=== PATIENT | female | born 1990 | race Caucasian/White ===

== ENCOUNTER 2017-10-16 14:32 | Outpatient (CLI) | payer BC, SELFPAY ==
[2017-10-16 14:33] VITALS: BP 136/99; PULSE 120; RESP 16; TEMP 37.2; O2SAT 94; BMI 25.2
[2017-10-16] MEDS: Ondansetron 4 MG/2 ML Vial IV (15:04)
[2017-10-16] MEDS: 0.9% Normal Saline 1,000 ML 1000 ML IV (15:04)
[2017-10-16 15:20] LABS: BUN 6 mg/dL (7-18); Creatinine, Serum 0.59 mg/dL (0.55-1.02); Estimated Creatinine Clearance 144.48 ml/min; Glucose 99 mg/dL (74-106)
--- NOTE | 2017-10-16 15:20 | RAD_ITS ---
STUDY: X-RAY CHEST REASON FOR EXAM: Female, 27 years old. Cough. Flulike symptoms. Patient is 27 weeks . Appropriate shielding was obtained. TECHNIQUE: PA and lateral views of the chest. COMPARISON: Comparison is made with prior study dated October 07, 2015. FINDINGS: The lungs are clear and expanded. Scattered calcified granulomas. There is no demonstrated pleural abnormality. Normal size heart. Normal mediastinum and catie. Normal visualized pulmonary arteries. Normal visualized aortic arch and descending thoracic aorta. Normal visualized thoracic spine. Normal visualized ribs, clavicles, and shoulders. There is no demonstrated abnormality of the visualized soft tissue structures of the upper abdomen. RAD/Chest PA and Lateral IMPRESSION: Normal x-ray examination of the chest. Electronically Signed: Sukhjinder Saunders MD at 15:42 EDT Tel [phone], Service support ,
[2017-10-16 15:21] LABS: Anion Gap 7 (5-15); BUN/Creat Ratio 10.1 RATIO (10-20); Calcium,Total 8.3 mg/dL (8.5-10.1); Chloride 108 mmol/L (98-107); EST Glomerular Filtration Rate 129 mL/min (>60); Est Glom Filt Rate - Afr Amer 156 mL/min (>60); Potassium 3.7 mmol/L (3.5-5.1); Sodium Level 139 mmol/L (136-145)
[2017-10-16 15:23] LABS: Mucous, Urine 0 SEEN /hpf (<or=2+); Red Blood Cells-Urine 0 SEEN /hpf (0-5)
[2017-10-16 15:28] LABS: Color, Urine Yellow (Yellow); Glucose, Dipstick Normal (Normal); Ketone-Dipstick Negative (Negative); Leukocyte Esterase-Dipstick 500 /ul (Negative); Nitrite-Dipstick Negative (Negative); Occult Blood-Urine Negative /ul (Negative); Protein-Dipstick 15 mg/dl (Negative); Urine Bilirubin Dipstick Negative (Negative); Urine Clarity Clear (Clear); Urine Urobilinogen Normal (Normal)
[2017-10-16 15:29] LABS: Absolute Lymphocyte Count 1.13 X10^3/ul (0.83-4.51); Absolute Neutrophil Count 6.9 X10^3/uL (2.0-7.7); Basophil# 0.01 X10^3/uL; Basophil% 0.1 % (0-1); Eosinophil# 0.09 X10^3/uL; Hematocrit 35.8 % (37-47); Hemoglobin 12.2 g/dl (12.0-15.0); Lymphocyte # 1.13 X10^3/ul (4.0); Lymphocyte % 12.4 % (19-41); Mean Corp Hgb Conc 34.1 g/gl (32-36); Mean Corpuscular Hgb 31.5 pg (27.0-32.0); Mean Corpuscular Volume 92.5 fL (81-99); Mean Platelet Vol. 9.8 fl (6.2-12.0); Monocyte# 0.93 X10^3/uL; Monocyte% 10.2 % (0-10); Neutrophil % 75.9 % (47-70); Platelet Count 157 K/mm3 (150-450); RBC Distribution Width CV 13.1 % (11.6-14.6); RBC Distribution Width SD 43.4 fl (35.1-43.9); Red Blood Count 3.87 M/mm3 (4.2-5.4); White Blood Count 9.1 K/mm3 (4.4-11.0)
[2017-10-16 15:30] LABS: POSITIVE COUNT NO; POSITIVE DIFFERENTIAL NO; POSITIVE MORPHOLOGY NO
[2017-10-16 15:35] LABS: Bacteria RARE /hpf (None Seen); Squamous Epithelial Cells - UA 0-5 SEEN /hpf (5-10); White Blood Cells 0-5 SEEN /hpf (0-5)
[2017-10-16 15:44] VITALS: BP 130/77
[2017-10-16 16:13] LABS: AST(SGOT) 17 U/L (15-37); Alanine Aminotransfer ALT/SGPT 17 U/L (13-56); Albumin, Serum 3.2 g/dL (3.2-5.0); Alkaline Phosphatase 217 U/L (45-117); Globulin 3.8 g/dL (2.2-4.2)
--- NOTE | 2017-10-16 17:20 | ED.VISSUMM ---
- ER Visit Summary Date of Service: 10/16/17 Chief Complaint: Fever History of Present Illness: The patient is a 27 F who [facility] She is a at 38 weeks and 0 days. She reports that she has a fever that began 2 days ago. Is been up to 102.1?. She has had nasal congestion and a sore throat is 4 out of 10 severity. She has a nonproductive cough. She denies any chest pain or difficulty breathing. States that she has had diffuse myalgias and a headache is 5 out of 10 in severity. States that yesterday she had a negative strep and influenza test. Patient reports that she became nauseated this morning and has vomited 4 times. No blood in her emesis. No diarrhea. She denies any abdominal pain. She had normal movement. She denies any signs of labor. Physical Examination: Vitals: Stable. Afebrile. General: Well-nourished and well-developed. Head: Normocephalic atraumatic. Neck: Supple, no lymphadenopathy. No JVD. Nontender. Cardiovascular: Regular rate and rhythm. No murmurs. Respiratory: No respiratory distress. Clear to auscultation bilaterally. Abdominal: Soft, nontender, nondistended, normal bowel sounds. No guarding, rebound, or peritoneal signs. Gravid uterus. Back: Nontender. Extremities: Nontender, no edema. Skin: Normal color, no rash. Neurologic: Alert and oriented ?3. Cranial nerves II through XII are intact. Normal strength and sensation. Psych: Normal affect. Test Results: CBC is marked for hematocrit of 35.8, segmented neutrophils of 76, sats of 12, monocytes of 10. Chem-7 more for chloride 108, BUN 6, calcium 8.3. LFTs marked for alk phos 217. UA shows protein and rare bacteria. Chest x-ray is normal. Emergency Department Course and Treatment: Patient had heart tones of 135. She was treated Zofran IV and is had no vomiting while here. She refused any medication for her headache. Her initial blood pressure is 136/99. Repeat blood pressure is 130/77. Treatment Plan: The patient was discussed with Dr. Sandra. She reports that her blood pressure is typically in the 1 teens in the office. She asked that she be sent up to labor and delivery to have a nonstress test and to watch her blood pressure. It is likely the patient is a false negative and has influenza. She is instructed to resume her Tamiflu. She will be given Phenergan for nausea. Disposition: Discharged to labor and delivery. Impression: 1. Influenza. 2. Third trimester . 3. Vomiting. This note was generated with [employer] dictation software. It may contain incorrect words, spelling, and punctuation that were not noted in review of the chart prior to signing ED Disposition - Plan for ED Patient: Chief Complaint: General Illness Instructions: ED Flu Prescriptions: proMETHazine tablet [Phenergan] 25 mg PO Q6H PRN PRN #10 tablet PRN Reason: Nausea Referrals: Yennifer Sandra [STAFF PHYSICIAN] - Keep Olivia appointment
[2017-10-16 17:56] VITALS: BP 141/85; RESP 18
--- NOTE | 2017-10-16 22:14 | OB.TRI.NOTE ---
History of Present Illness Date of Service: 10/16/17 Was patient seen by the physician?: Yes Reason For Visit: BLOOD PRESURE ,MONITORING THE BABY Final CASEY: 10/30/17 Gestational age: 38 Weeks and 0 Days History of Present Illness: Patient seen in ED for flu like symptoms. She reports a mild headache & declines tylenol. Home Medications Medication Instructions Recorded Vits [Prenatabs FA ] 1 tablet PO DAILY 05/09/14 proMETHazine tablet [Phenergan] 25 mg PO Q6H PRN PRN #10 tablet 10/16/17 Allergies amoxicillin [Amoxicillin] Allergy (Verified 10/16/17 14:35) Rash acetaminophen [From Vicodin] Adverse Reaction (Verified 10/16/17 14:35) Vomiting hydrocodone bitartrate [From Vicodin] Adverse Reaction (Verified 10/16/17 14:35) Vomiting Physical Exam Vitals: Vital Signs Temp Pulse Resp BP Pulse Ox 98.9 F 120 H 18 141/85 H 94 10/16/17 14:33 10/16/17 14:33 10/16/17 17:56 10/16/17 17:56 10/16/17 14:33 NST - FHR Rate Baby A Baseline: 120 Variability:: Moderate Accelerations:: 15 x 15 Decelerations:: None NST Reactive:: Yes Uterine Activity:: quiet Impression/Plan Reactive NST for elevated BP in No evidence preeclampsia Resume tamiflu for flu Patient advised to call for persistent fever, headache or other concerns
== END 2017-10-16 19:30 | disposition home or self-care (01) ==
LOC: ED 15:49 → WPOUT 18:14 → WP 18:15
PROVIDERS: Emergency Provider Emergency Medicine; Family Provider Physician Assistant; PCP Physician Assistant; Visit Provider Obstetrics & Gynecology
DX: O98.513 Other viral diseases complicating pregnancy, third trimester (principal); J11.1 Influenza due to unidentified influenza virus with other respiratory manifestations; O26.893 Other specified pregnancy related conditions, third trimester; R11.10 Vomiting, unspecified; R03.0 Elevated blood-pressure reading, without diagnosis of hypertension; Z3A.38 38 weeks gestation of pregnancy
CPT/HCPCS: 59025; 59050; 71046; 80048; 80076; 81001; 85025; 87086; 87088; 96361; 96374; 99218; 99284; A4216; G0378; J2405

== ENCOUNTER 2017-10-23 06:55 | Inpatient (IN) | payer BC, SELFPAY ==
[2017-10-23 07:03] VITALS: BMI 25.2
[2017-10-23] MEDS: Lactated Ringers 1,000 ML 50 ML IV ×2 (07:48→11:25)
[2017-10-23] MEDS: Oxytocin 30 units/NS 500 ml 30 UNITS/500 ML IV.SOLN IV (07:49)
[2017-10-23 08:00] LABS: Hematocrit 33.9 % (37-47); Hemoglobin 11.7 g/dl (12.0-15.0); Mean Corp Hgb Conc 34.5 g/gl (32-36); Mean Corpuscular Hgb 31.6 pg (27.0-32.0); Mean Corpuscular Volume 91.6 fL (81-99); Platelet Count 181 K/mm3 (150-450); RBC Distribution Width CV 12.8 % (11.6-14.6); RBC Distribution Width SD 42.4 fl (35.1-43.9); Scan Indicated on CBC? Y/N NO
[2017-10-23] MEDS: fentaNYL-bupivacaine (epidural) 100 ML BAG EPIDURAL (11:45)
[2017-10-23] MEDS: Ondansetron 4 MG/2 ML Vial IV (12:27)
[2017-10-23] MEDS: Oxytocin 30 units/NS 500 ml 30 UNITS/500 ML IV.SOLN 334 UNITS IV (15:00)
--- NOTE | 2017-10-23 15:16 | PCM.HP.OB ---
History Date of Admission: 10/23/17 Final CASEY: 10/30/17 Gestational age: 39 Weeks and 0 Days History of this : GBS negative LGA fetus Hyperemesis Pertinent Past Medical History: Celiac PP depression Allergies amoxicillin [Amoxicillin] Allergy (Verified 10/16/17 14:35) Rash hydrocodone bitartrate [From Vicodin] Adverse Reaction (Verified 10/16/17 14:35) Vomiting Current Medications Acetaminophen (Tylenol) 325 - 650 mg PO Q4H PRN PRN PRN Reason: PAIN OR FEVER >100.4F Al Hydroxide/Mg Hydroxide (Mylanta Ii) 15 - 30 ml PO Q4H PRN PRN PRN Reason: INDIGESTION Citric Acid/Sodium Citrate (Bicitra) 30 ml PO UD PRN Lactated Ringer's () 1,000 mls @ 50 mls/hr IV .Q20H [facility] Last Admin: 10/23/17 11:25 Dose: 50 mls/hr Oxytocin/Sodium Chloride () 30 units in 500 mls @ 1 mls/hr IV .Q500H [facility] Last Admin: 10/23/17 07:49 Dose: 1 mls/hr Naloxone HCl 4 mg/ Dextrose 504 mls @ 0 mls/hr IV PRN PRN; Protocol PRN Reason: TO MAINTAIN RR>10 Nalbuphine HCl (Nubain) 5 - 10 mg IV Q3H PRN PRN PRN Reason: PAIN (4-10/10) Nalbuphine HCl (Nubain) 5 mg IV Q3H PRN PRN Reason: ITCHING Stop: 10/24/17 11:37 Naloxone HCl (Narcan) 0.2 mg IV Q1M PRN PRN Reason: RR<10 AND PT UNRESPONSIVE Stop: 10/24/17 11:37 Ondansetron HCl (Zofran) 4 mg IV Q8H PRN PRN PRN Reason: NAUSEA Last Admin: 10/23/17 12:27 Dose: 4 mg Promethazine HCl (Phenergan Iv) 6.25 - 12.5 mg IV Q4H PRN PRN; Protocol PRN Reason: IF NAUSEA PERSISTS Sodium Chloride () 5 - 15 ml IV UD [facility] Last Admin: 10/23/17 08:32 Dose: Not Given Smoking Status: Never smoker Alcohol: None Drug Use: none Number of Fetus(es): 1 Physical Exam General: Alert, Oriented x3 Abdomen: Soft, Non Tender, Non-Distended, Gravid Estimated gestational size: Large for gestational age Presentation: Cephalic Cervix Dilation (cm): 3 - AROM clear fluid on admission Station: -2 Effacement (%): 50 Assessment/Plan 27yo female @ 39wks for induction Suspected LGA fetus - 8-8.5lbs, adequate pelvis Induction s/p AROM, on pitocin Pain - epidural GBS negative consult PP Routine care
--- NOTE | 2017-10-23 15:20 | HP.PCM_ITS ---
History Date of Admission: 10/23/17 Final CASEY: 10/30/17 Gestational age: 39 Weeks and 0 Days History of this : GBS negative LGA fetus Hyperemesis Pertinent Past Medical History: Celiac PP depression Allergies amoxicillin [Amoxicillin] Allergy (Verified 10/16/17 14:35) Rash hydrocodone bitartrate [From Vicodin] Adverse Reaction (Verified 10/16/17 14:35) Vomiting Current Medications Acetaminophen (Tylenol) 325 - 650 mg PO Q4H PRN PRN PRN Reason: PAIN OR FEVER >100.4F Al Hydroxide/Mg Hydroxide (Mylanta Ii) 15 - 30 ml PO Q4H PRN PRN PRN Reason: INDIGESTION Citric Acid/Sodium Citrate (Bicitra) 30 ml PO UD PRN Lactated Ringer's () 1,000 mls @ 50 mls/hr IV .Q20H [facility] Last Admin: 10/23/17 11:25 Dose: 50 mls/hr Oxytocin/Sodium Chloride () 30 units in 500 mls @ 1 mls/hr IV .Q500H [facility] Last Admin: 10/23/17 07:49 Dose: 1 mls/hr Naloxone HCl 4 mg/ Dextrose 504 mls @ 0 mls/hr IV PRN PRN; Protocol PRN Reason: TO MAINTAIN RR>10 Nalbuphine HCl (Nubain) 5 - 10 mg IV Q3H PRN PRN PRN Reason: PAIN (4-10/10) Nalbuphine HCl (Nubain) 5 mg IV Q3H PRN PRN Reason: ITCHING Stop: 10/24/17 11:37 Naloxone HCl (Narcan) 0.2 mg IV Q1M PRN PRN Reason: RR<10 AND PT UNRESPONSIVE Stop: 10/24/17 11:37 Ondansetron HCl (Zofran) 4 mg IV Q8H PRN PRN PRN Reason: NAUSEA Last Admin: 10/23/17 12:27 Dose: 4 mg Promethazine HCl (Phenergan Iv) 6.25 - 12.5 mg IV Q4H PRN PRN; Protocol PRN Reason: IF NAUSEA PERSISTS Sodium Chloride () 5 - 15 ml IV UD [facility] Last Admin: 10/23/17 08:32 Dose: Not Given Smoking Status: Never smoker Alcohol: None Drug Use: none Number of Fetus(es): 1 Physical Exam General: Alert, Oriented x3 Abdomen: Soft, Non Tender, Non-Distended, Gravid Estimated gestational size: Large for gestational age Presentation: Cephalic Cervix Dilation (cm): 3 - AROM clear fluid on admission Station: -2 Effacement (%): 50 Assessment/Plan 27yo female @ 39wks for induction Suspected LGA fetus - 8-8.5lbs, adequate pelvis Induction s/p AROM, on pitocin Pain - epidural GBS negative consult PP Routine care
--- NOTE | 2017-10-23 15:20 | PCM.OB.VAG ---
Vaginal Delivery Maternal Presentation: Elective Induction Method of Induction: Pitocin Amniotic Membrane Rupture Type: Artificial Amniotic Fluid Description: Clear Final CASEY: 10/30/17 Gestational age: 39 Weeks and 0 Days Date of Procedure: 10/23/17 Pre-Operative Diagnosis: Suspected LGA , elective induction Post-Operative Diagnosis: Same Surgery/ Procedure Performed: Spontaneous Vaginal Delivery Type of Anesthesia: Epidural Description of Procedure: Patient prepped & draped in stirrups. She pushed & delivered head. Gentle traction placed on head to allow delivery of anterior & posterior shoulders. No excess traction placed on head. Body delivered easily & placed on maternal abdomen. 3vc clamped & cut in delayed fashion. Placenta delivered with gentle traction & good uterine tone obtained. Presentation: HEBER Placental Delivery Description: Expressed Placenta Disposition: [facility] Cord Vessel Description: 3 Vessels Cord Entanglement: Around neck x 1, loose Estimated Blood Loss: 400ml A gender: Male (1 minute): 8 (5 minute): 9 Episiotomy Description: None Laceration: 1st degree - perineal - repaired with 3-0 vicryl Medications given after delivery: IV Pitocin Complications: None
[2017-10-23] MEDS: Oxytocin 30 units/NS 500 ml 30 UNITS/500 ML IV.SOLN 167 UNITS IV (15:30)
[2017-10-23] MEDS: Ibuprofen 600 MG Tablet PO (17:07)
[2017-10-23 19:45] VITALS: BP 133/75; PULSE 76; RESP 16; TEMP 36.9; O2SAT 98
[2017-10-23] MEDS: Acetaminophen 500 MG Tablet 1000 MG PO (20:05)
[2017-10-23] MEDS: oxyCODONE 5 MG Tablet PO (22:37)
[2017-10-24 01:00] VITALS: BP 123/77; PULSE 83; RESP 18; TEMP 36.9; O2SAT 97
[2017-10-24] MEDS: Ibuprofen 600 MG Tablet PO ×3 (02:29→20:46)
[2017-10-24 03:40] VITALS: BP 113/57; PULSE 78; RESP 18; TEMP 36.7; O2SAT 96
[2017-10-24] MEDS: Acetaminophen 500 MG Tablet 1000 MG PO ×2 (04:15→22:53)
--- NOTE | 2017-10-24 06:49 | NURSING ---
This RN agrees with all Melissa SN charting
[2017-10-24 07:54] VITALS: BP 115/77; PULSE 79; RESP 16; TEMP 36.3; O2SAT 98
--- NOTE | 2017-10-24 08:51 | PN.OBGYN_ITS ---
Subjective: Patient sitting up in bed. Reports that she is pumping breastmilk exclusively without difficulty. Reports increased cramping during pumping sessions than when she had her first child. Patient reports some perineal soreness; ice packs and TUCKS pads to perineum to provide comfort. Objective: Scant rubra lochia Perineum well-approximated No vulvar/labial edema noted - Physical Exam General: Alert, Oriented x3, Cooperative Lungs: Normal air movement Cardiovascular: Regular rate, Regular Rhythm Abdomen: Soft, Non Tender, Non-Distended Extremities: No edema, Capillary Refill Less than 3 Seconds, No Calf Tenderness , Peripheral Pulses Normal Skin: No rashes, No breakdown Musculoskeletal: No Tenderness to Palpation of Joints or Extremities Lymphatic: No Cervical, Supraclavicular, or Inguinal Adenopathy Neurological: Cranial nerves II-XII grossly intact Psych/Mental Status: Normal Affect, Appropriate, Alert and oriented to time, place, person, mood and affect Vital Signs Temp Pulse Resp BP Pulse Ox 97.4 F L 79 16 115/77 98 10/24/17 07:54 10/24/17 07:54 10/24/17 07:54 10/24/17 07:54 10/24/17 07:54 Oxygen Delivery Method Room Air Weight: 166 lb 3.657 oz Body Mass Index (BMI) 25.2 Intake and Output for Last 24 Hours 10/22/17 10/23/17 10/24/17 23:59 23:59 23:59 Intake Total 1379 / 1379 Output Total 3125 / 3125 600 / 600 Balance -1746 / -1746 -600 / -600 Laboratory Tests Past 24 Hrs 10/23/17 07:35 Blood Type A POSITIVE Antibody Screen NEGATIVE Medical Necessity - Tobacco Use Smoking Status: Never smoker Assessment/Plan 27 y/o s/p , PPD #1, Normal Course P: 1) Patient desires discharge to home tomorrow morning 2) Continue PP orders 3) Continue support, encourage pumping breastmilk q 3 hours iAleen Greenfield CNM
[2017-10-24] MEDS: oxyCODONE 5 MG Tablet PO (13:56)
[2017-10-24 14:00] VITALS: BP 112/84; PULSE 80; RESP 16; TEMP 36.8; O2SAT 96
[2017-10-24 20:25] VITALS: BP 133/78; PULSE 75; RESP 16; TEMP 37.6
[2017-10-24] MEDS: Senna/Docusate Sodium 1 Tablet PO (20:46)
[2017-10-25 02:05] VITALS: BP 123/80; PULSE 69; RESP 16; TEMP 36.6
[2017-10-25] MEDS: Senna/Docusate Sodium 1 Tablet PO (07:56)
[2017-10-25] MEDS: Ibuprofen 600 MG Tablet PO (07:56)
[2017-10-25 08:00] VITALS: BP 132/83; PULSE 83; RESP 18; TEMP 37
--- NOTE | 2017-10-25 08:27 | PCM.PN.OB ---
Subjective: No complaints - Physical Exam General: Alert, Oriented x3 Abdomen: Soft, Non Tender, Non-Distended - ff mid & below umb Extremities: No Calf Tenderness Vital Signs Temp Pulse Resp BP Pulse Ox 98.6 F 83 18 132/83 H 96 10/25/17 08:00 10/25/17 08:00 10/25/17 08:00 10/25/17 08:00 10/24/17 14:00 Oxygen Delivery Method Room Air Weight: 166 lb 3.657 oz Body Mass Index (BMI) 25.2 Intake and Output for Last 24 Hours 10/23/17 10/24/17 10/25/17 23:59 23:59 23:59 Intake Total 1379 / 1379 Output Total 3125 / 3125 600 / 600 Balance -1746 / -1746 -600 / -600 Medical Necessity - Tobacco Use Smoking Status: Never smoker Assessment/Plan 27yo female PPD#2 D/c home Miralax for constipation
--- NOTE | 2017-10-25 08:29 | PCM.DCVAG ---
Discharge Diet: No Restrictions Discharge Activity: May Drive, May Shower May resume sexual activity in: 4-6 weeks Weight Bearing Status: Weight bearing as tolerated Additional Instructions: If you experience any of the following, contact your healthcare provider. Bleeding that soaks a pad every hour for 2 hours Fever 100.4 or higher Unrelieved incision or abdominal pain Swelling, redness, discharge or bleeding from your incision or episiotomy site Your incision begins to separate Problems urinating (including inability to urinate or burning while urinating). Visual changes Severe headache Flu-like symptoms Pain or redness in one of both of your breasts Pain, warmth, tenderness or swelling in your legs, especially the calf area Frequent nausea and vomiting Symptoms of depression or anxiety If you experience any of the following, call 911 or go to the nearest Emergency Room. Chest pain Problems breathing Seizure activity Partial or complete paralysis of a body part, slurred speech, weakness or drooping of the face, or a sudden inability to walk or hold your balance Allergies/Adverse Reactions: Allergies amoxicillin [Amoxicillin] Allergy (Verified 10/16/17 14:35) Rash hydrocodone bitartrate [From Vicodin] Adverse Reaction (Verified 10/16/17 14:35) Vomiting Medications to take at Discharge Vits [Prenatabs FA ] 1 tablet PO DAILY 05/09/14 Primary Care Physician: Davon Almanza PA [Primary Care Provider] -
--- NOTE | 2017-10-25 08:30 | DCINST_ITS ---
Discharge Diet: No Restrictions Discharge Activity: May Drive, May Shower May resume sexual activity in: 4-6 weeks Weight Bearing Status: Weight bearing as tolerated Additional Instructions: If you experience any of the following, contact your healthcare provider. * Bleeding that soaks a pad every hour for 2 hours * Fever 100.4 or higher * Unrelieved incision or abdominal pain * Swelling, redness, discharge or bleeding from your incision or episiotomy site * Your incision begins to separate * Problems urinating (including inability to urinate or burning while urinating) . * Visual changes * Severe headache * Flu-like symptoms * Pain or redness in one of both of your breasts * Pain, warmth, tenderness or swelling in your legs, especially the calf area * Frequent nausea and vomiting * Symptoms of depression or anxiety If you experience any of the following, call 911 or go to the nearest Emergency Room. * Chest pain * Problems breathing * Seizure activity * Partial or complete paralysis of a body part, slurred speech, weakness or drooping of the face, or a sudden inability to walk or hold your balance Allergies/Adverse Reactions: Allergies amoxicillin [Amoxicillin] Allergy (Verified 10/16/17 14:35) Rash hydrocodone bitartrate [From Vicodin] Adverse Reaction (Verified 10/16/17 14:35) Vomiting Medications to take at Discharge Vits [Prenatabs FA ] 1 tablet PO DAILY 05/09/14 Primary Care Physician: Davon Almanza PA [Primary Care Provider] -
== END 2017-10-25 11:00 | disposition home or self-care (01) | DRG 775 ==
PROVIDERS: Admitting Provider Obstetrics & Gynecology; Family Provider Physician Assistant; PCP Physician Assistant; Visit Provider Obstetrics & Gynecology
DX: O36.63X0 Maternal care for excessive fetal growth, third trimester, not applicable or unspecified (principal); Z3A.39 39 weeks gestation of pregnancy; Z37.0 Single live birth; O69.81X0 Labor and delivery complicated by cord around neck, without compression, not applicable or unspecified; O70.0 First degree perineal laceration during delivery
CPT/HCPCS: 59050; 85027; 86850; 86900; 99218; J7120; G0378; J2405

== ENCOUNTER → 2018-04-22 13:41 | Emergency (ER) | payer BC, SELFPAY ==
[2018-04-22 13:42] VITALS: BP 121/76; PULSE 66; RESP 18; TEMP 36.9; O2SAT 99; BMI 19.4
== END ==
PROVIDERS: Family Provider Physician Assistant; PCP Physician Assistant
DX: R69 Illness, unspecified (principal)

== ENCOUNTER → 2018-05-24 16:56 | Outpatient (CLI) | payer BC, SELFPAY ==
--- NOTE | 2018-05-24 17:00 | CT_ITS ---
STUDY: CTA OF THE BRAIN REASON FOR EXAM: Female, 27 years old. Neck pain. Evaluate for vertebral artery dissection. RADIATION DOSAGE (If Supplied By Facility): CTDIvol = ( 25.57 ) mGy, DLP = ( 1320.71 ) mGycm TECHNIQUE: CT angiography was performed with a multi-detector CT scanner. Data acquisition was obtained from the skull base through the vertex following intravenous administration of 75 ml of Isovue-370. MIP images were reconstructed from the axial data set. Post-processing of the angiographic images was performed, with multiplanar reformation and 3D reconstruction. Individualized dose optimization techniques were used for this CT. COMPARISON: None. FINDINGS: Normal bilateral petrous carotid arteries. Normal right cavernous carotid artery with a normal supraclinoid bifurcation. Normal left cavernous carotid artery with a normal supraclinoid bifurcation. Normal right A1 segments of the anterior cerebral artery. Normal left A1 segments of the anterior cerebral artery. Normal intact anterior communicating artery (ACOM). Normal bilateral A2 segments of the anterior cerebral arteries. Normal right M1 and M2 segments of the middle cerebral arteries, with a normal M1 bifurcation. Normal left M1 and M2 segments of the middle cerebral arteries, with a normal M1 bifurcation. Normal right posterior communicating artery (PCOM). Both vertebral arteries are patent. Right vertebral artery is dominant. Approximately the level of the clivus and the left vertebral artery is very thin but enhances with contrast.. Normal basilar artery with a normal basilar bifurcation. The visualized bilateral superior cerebellar (SCA) arteries are normal. Normal right P1, P2 and visualized P3 segments of the posterior cerebral artery. origin of the left posterior cerebral artery which is a normal variant. There is no demonstrated aneurysm of the [place]. There is no demonstrated abnormality of the visualized brain. CT/CTA Head W/WO Contrast IMPRESSION: Normal [place] without a demonstrated aneurysm or hemodynamically significant stenosis. Attenuated distal left vertebral artery. origin of the left posterior cerebral artery. Electronically Signed: Jorge Alberto Messer MD at 2:59 EST , Service support ,
--- NOTE | 2018-05-24 17:00 | CT_ITS ---
STUDY: CTA NECK WITH CONTRAST BILATERAL REASON FOR EXAM: Female, 27 years old. Neck pain. Evaluate for vertebral artery dissection. Individualized dose optimization techniques were used for this CT.? TECHNIQUE: Axial images of the extracranial carotid arteries administration of 75 mL Isovue 370 intravenous contrast. Sagittal and coronal reconstructions. COMPARISON: CTA head May 24, 2018. FINDINGS: Normal visualized aortic arch. Normal takeoff of the great vessels. Normal right common carotid artery, carotid bulb, internal carotid artery and external carotid artery. No aneurysmal dilatation or stenosis. Normal left common carotid artery, carotid bulb, internal carotid artery and external carotid artery. No aneurysmal dilatation or stenosis. Both extracranial vertebral arteries are patent. The right vertebral artery is dominant. CT/CTA Neck W/WO Contrast IMPRESSION: Normal carotid and vertebral arteries. Electronically Signed: Jorge Alberto Messer MD at 3:07 EST , Service support ,
== END ==
PROVIDERS: Family Provider Physician Assistant; PCP Physician Assistant; Referring Provider Psychiatry & Neurology Neurology; Visit Provider Psychiatry & Neurology Neurology
DX: S14.109A Unspecified injury at unspecified level of cervical spinal cord, initial encounter (principal)
CPT/HCPCS: 70496; 70498; Q9967

== ENCOUNTER 2023-12-23 19:17 | Inpatient (IN) | payer BC, SELFPAY ==
--- NOTE | 2023-12-23 19:11 | HP.PCM.HOS_ITS ---
[facility] - General General Date of Admission: 12/23/23 Date of Service: 12/23/23 Chief Complaint: Abdominal Pain, Nausea and Vomiting. [facility] Narrative JESSICA BEACH, is a 33 F with a past medical history of celiac disease, G2- P2; with hyperemesis gravidarum during both pregnancies with Reglan pump for the first and Zofran pump for the second and history of listed allergy to Amoxil; which causes rash who was transferred to [facility] from [facility] with abdominal pain, nausea and vomiting. The patient reports her symptoms began approximately 2:00 AM when she was awakened to severe abdominal pain, mainly focused in the epigastrium followed by waves of nausea and several episodes of bilious emesis. She took some Zofran ODT she had at home without improvement and then she and her went to the ER at [facility] for further evaluation and treatment. She denies associated diarrhea, dysuria, similar previous episodes or blood in vomitus or stools but she was noted to have a low-grade fever of 99.2 ?F present on admission along with a severe tension type headache. While there she was noted to have a UA that was borderline positive for UTI with recheck pending at this time. She was also noted to have mild hyperbilirubinemia of 1.6 mg/dL without significant elevation of LFT's or other laboratory abnormalities including a negative test. She initially underwent conservative care with IVF's, antiemetics and IV Dilaudid x 2 with patient still having severe nausea and ~7/10 abdominal pain at this time with patient tearful and distressed. She was accompanied by both her mother and her and they helped to augment the history. She did travel to [place] this past September - but she denies any severe illness associated with her trip and she denies any other chronic medical conditions other than the ones described above. Her CT scan of the abdomen and pelvis there revealed a well- circumscribed heterogenous enhancing lesion ~2.3 cm x ~2 cm within the pylorus/proximal duodenum with associated diffuse multifocal small bowel and colonic wall thickening with subtle surrounding inflammation and suspected ileocolitis. She was also noted to have an IUD in place. The swing-shift hospitalist was then contacted and accepted patient in transfer with gastroenterology/Dr. Alexander to see patient in consultation in the a.m. for EGD with help appreciated in advance. She was then admitted to the general medical floor for ongoing care for stay that is expected to be greater than 2 midnights. PFSH Home Medications ?Medication ?Instructions ?Recorded ?Last Taken ?Type multivitamin 1 tab PO DAILY 12/23/23 Unknown History Allergy/AdvReac Type Severity Reaction Status Date / Time amoxicillin (Amoxicillin) Allergy Rash Verified 04/22/18 13:43 hydrocodone bitartrate (From AdvReac Vomiting Verified 04/22/18 13:43 Vicodin) Surgical History History of adenoidectomy History of tonsillectomy Social History Smoking Status: Never smoker ROS ROS Narrative Review of systems: General: Patient was noted to have a low-grade temperature of 99.2 ?F present on admission but she denies chills. HENT: Patient admits to tension type headache but she denies stuffy nose, denies sore throat EYES: Denies changes in vision or discharge from eyes. Resp: Denies cough, denies shortness of breath Cardiac: Denies chest pain, palpitations or heart racing. GI: Patient admits to severe abdominal pain mainly emanating from the epigastrium with intractable nausea vomiting that persist in spite of conservative treatment as per HPI. : Denies changes in urination Extremity: Denies swelling Musculoskeletal: Feels somewhat generally weak and unwell but denies arthralgias or myalgias. Neuro: Patient admits to tension type headache but she denies paresthesias or focal neurologic weakness. Heme: Denies any bleeding or bruising Skin: Denies rashes Psychiatric: No complaints voiced related uncontrolled depression or anxiety. Endocrine: No polyuria, polydipsia or polyphagia. The rest of the 14 point ROS was negative except for positives in HPI. Vital Signs Vital Signs Vital Signs: VSS Physical Exam Const alert, oriented x3, average body habitus and healthy appearing Constitutional Narrative: Patient noted to be in significant / moderate distress. General Appearance: cooperative HEENT normocephalic, head/scalp atraumatic, hearing grossly normal bilaterally and moist oral mucous membranes Eyes PERRL and EOMs intact bilaterally Neck no lymphadenopathy and supple Resp normal respiratory effort, no retractions, no use of accessory muscles and clear to auscultation bilaterally Cardio regular rate and regular rhythm GI soft to palpation GI Narrative: Mild generalized tenderness to palpation mainly in the epigastrium. Bowel sounds normal. Extremity normal to inspection, full ROM and no clubbing, cyanosis or edema Skin Skin Narrative: Patient has no evidence of jaundice or rash. Neuro oriented x3, CN's II-XII intact bilaterally, moves all extremities and no focal motor deficits Sensorium / Orientation: awake, alert, oriented to person, oriented to place and oriented to time Speech: speech normal Motor Exam: strength 5/5 throughout Psych Psych Narrative: Patient is tearful and in obvious distress. Mood & Affect: anxious Results Medical Records Data Attestation: I reviewed the patient's medical records Lab / Micro Data Attestation: I reviewed the patient's lab results. 12/23/23 19:40 12/23/23 19:40 Assessment & Plan Assessment/Plan (1) Duodenal mass: (2) Ileocolitis: (3) Hyperbilirubinemia: (4) Intractable nausea and vomiting: (5) Intractable epigastric abdominal pain: (6) Celiac disease: PLAN: Plan 1. CT scan of the abdomen and pelvis done at [facility] ER revealed a well-circumscribed heterogenous enhancing lesion ~2.3 cm x ~2 cm within the pylorus/proximal duodenum with associated diffuse multifocal small bowel and colonic wall thickening with subtle surrounding inflammation and suspected ileocolitis with mild hyperbilirubinemia of 1.7 mg/dL present on admission in the setting of known celiac disease and recent trip to [place] - Admit to general medical floor under aspiration precautions. Keep strict n.p.o. and give IV morphine as needed for severe (level 6-10 out of 10) pain or tension type headache. Finally, we will consult Dr. Alexander of gastroenterology to see this patient on rounds in the a.m. for further recommendations regarding urgent EGD this admission without appreciated in advance. 2. Intractable abdominal pain with intractable nausea and vomiting with bilious emesis complicating #1 - Keep NPO. Give IV Protonix plus as needed IV Zofran for nausea. Give IM Phenergan as needed for breakthrough nausea vomiting. 3. Previously suspected early acute cystitis; without hematuria at other hospital but UA is negative here - Noted. 4. G2-P2; with hyperemesis gravidarum during both pregnancies with Reglan pump for the first and Zofran pump for the second - Noted. 5. History of listed allergy to Amoxil; which causes rash - Noted. 6. IUD in place with negative urine test at [facility] - Noted. 7. DVT prophylaxis - SCD's only with impending EGD. Total time: Approximately 55 minutes. Charges/Coding Visit Charges Inpatient E&M: 09702 Init Hosp L2
[2023-12-23 19:28] VITALS: BMI 23.6
[2023-12-23 19:50] LABS: Absolute Lymphocyte Count 0.62 X10^3/uL (0.83-4.51); Absolute Neutrophil Count 7.6 X10^3/uL (2.0-7.7); Basophil# 0.01 X10^3/uL; Basophil% 0.1 % (0-1); Hematocrit 38.8 % (37-47); Hemoglobin 13.9 g/dL (12.0-15.0); Lymphocyte # 0.62 X10^3/ul (0.83-4.51); Lymphocyte % 7.1 % (19-41); Mean Corp Hgb Conc 35.8 g/dL (32-36); Mean Corpuscular Hgb 32.2 pg (27.0-32.0); Mean Corpuscular Volume 89.8 fL (81-99); Mean Platelet Vol. 9.3 fl (6.2-12.0); Monocyte# 0.42 X10^3/uL; Monocyte% 4.8 % (0-10); NRBC Flagged by Analyzer 0 % (0-5); Neutrophil # 7.64 X10^3/uL (2.7-7.7); Neutrophil % 87.8 % (47-70); Platelet Count 211 K/mm3 (150-450); RBC Distribution Width CV 11.4 % (11.6-14.6); RBC Distribution Width SD 37.1 fl (35.1-43.9); Red Blood Count 4.32 M/mm3 (4.2-5.4); White Blood Count 8.7 K/mm3 (4.4-11.0)
[2023-12-23 19:51] VITALS: BP 167/111; PULSE 105; RESP 16; TEMP 37.3; O2SAT 96
[2023-12-23] MEDS: Pantoprazole Sodium 40 MG in 0.9% Normal Saline (100mL MB+) 100 ML 330 MG IV (19:59)
[2023-12-23] MEDS: Scopolamine 1mg/72hr Patch 1 PATCH TD (20:08)
[2023-12-23] MEDS: 0.9% Normal Saline (1000mL) 1,000 ML 150 ML IV (20:09)
[2023-12-23 20:26] LABS: ALB/GLOB Ratio 1.5 RATIO (0.9-2.4); AST(SGOT) 19 U/L (15-37); Alanine Aminotransfer ALT/SGPT 20 U/L (13-56); Albumin, Serum 4.1 g/dL (3.2-5.0); Alkaline Phosphatase 52 U/L (45-117); Anion Gap 7 (5-15); BUN 11 mg/dL (7-18); BUN/Creat Ratio 11.9 RATIO (10-20); Calcium,Total 8.5 mg/dL (8.5-10.1); Chloride 107 mmol/L (98-107); Creatinine, Serum 0.93 mg/dL (0.55-1.02); EST Glomerular Filtration Rate 74 mL/min (>60); Est Glom Filt Rate - Afr Amer 89 mL/min (>60); Estimated Creatinine Clearance 89.92 ml/min; Globulin 2.8 g/dL (2.2-4.2); Glucose 98 mg/dL (74-106); Potassium 3.7 mmol/L (3.5-5.1); Protein, Total 6.9 g/dL (6.4-8.2); Sodium Level 137 mmol/L (136-145)
[2023-12-23] MEDS: Morphine 2 MG/ML Syringe IV ×2 (20:51→23:37)
--- NOTE | 2023-12-23 21:57 | NURSING ---
Urine test completed at [facility] 12/23/23 at 1232. Test was negative. See [facility] documentation in patient's chart.
[2023-12-23 22:00] LABS: Bacteria 0 SEEN /hpf (None Seen); Mucous, Urine 0 SEEN /hpf (<or=2+); Red Blood Cells-Urine 0 SEEN /hpf (0-5)
[2023-12-23 22:01] VITALS: BMI 23.6
[2023-12-23 22:02] LABS: Color, Urine Yellow (Yellow); Glucose, Dipstick Normal (Normal); Ketone-Dipstick 50 mg/dl (Negative); Leukocyte Esterase-Dipstick Negative /ul (Negative); Nitrite-Dipstick Negative (Negative); Occult Blood-Urine Negative /ul (Negative); Protein-Dipstick Negative (Negative); Specific Gravity, Urine 1.005 (1.002-1.030); Urine Bilirubin Dipstick Negative (Negative); Urine Clarity Clear (Clear); Urine Urobilinogen Normal (Normal)
[2023-12-23 22:09] LABS: Squamous Epithelial Cells - UA 0-5 SEEN /hpf (5-10); White Blood Cells 0-5 SEEN /hpf (0-5)
--- NOTE | 2023-12-23 22:40 | CON.PCM.GI_ITS ---
HPI Consult Data Date of Consult: 12/23/23 HPI Narrative Reason for Consultation: Abdominal pain HPI Narrative: JESSICA BEACH, is a 33 F with a past medical history of celiac disease, G2- P2; with hyperemesis gravidarum during both pregnancies with Reglan pump for the first and Zofran pump for the second and history of listed allergy to Amoxil; which causes rash who was transferred to [facility] from [facility] with abdominal pain, nausea and vomiting. The patient reports her symptoms began approximately 2:00 AM when she was awakened to severe abdominal pain, mainly focused in the epigastrium followed by waves of nausea and several episodes of bilious emesis. She took some Zofran ODT she had at home without improvement and then she and her went to the ER at [facility] for further evaluation and treatment. She denies associated diarrhea, dysuria, similar previous episodes or blood in vomitus or stools but she was noted to have a low-grade fever of 99.2 ?F present on admission along with a severe tension type headache. While there she was noted to have a UA that was borderline positive for UTI with recheck pending at this time. She was also noted to have mild hyperbilirubinemia of 1.6 mg/dL without significant elevation of LFT's or other laboratory abnormalities including a negative test. She initially underwent conservative care with IVF's, antiemetics and IV Dilaudid x 2 with patient still having severe nausea and ~7/10 abdominal pain at this time with patient tearful and distressed. She was accompanied by both her mother and her and they helped to augment the history. She did travel to [place] this past September - but she denies any severe illness associated with her trip and she denies any other chronic medical conditions other than the ones described above. Her CT scan of the abdomen and pelvis there revealed a well-circumscribed heterogenous enhancing lesion ~2.3 cm x ~2 cm within the pylorus/proximal duodenum with associated diffuse multifocal small bowel and colonic wall thickening with subtle surrounding inflammation and suspected ileocolitis. [facility] Home Medications ?Medication ?Instructions ?Recorded ?Last Taken ?Type multivitamin 1 tab PO DAILY 12/23/23 Unknown History Allergy/AdvReac Type Severity Reaction Status Date / Time amoxicillin (Amoxicillin) Allergy Rash Verified 04/22/18 13:43 hydrocodone bitartrate (From AdvReac Vomiting Verified 04/22/18 13:43 Vicodin) Surgical History History of adenoidectomy History of tonsillectomy Social History Smoking Status: Never smoker ROS ROS Narrative Review of systems: General: Patient was noted to have a low-grade temperature of 99.2 ?F present on admission but she denies chills. HENT: Patient admits to tension type headache but she denies stuffy nose, denies sore throat EYES: Denies changes in vision or discharge from eyes. Resp: Denies cough, denies shortness of breath Cardiac: Denies chest pain, palpitations or heart racing. GI: Patient admits to severe abdominal pain mainly emanating from the epigastrium with intractable nausea vomiting that persist in spite of conservative treatment as per HPI. : Denies changes in urination Extremity: Denies swelling Musculoskeletal: Feels somewhat generally weak and unwell but denies arthralgias or myalgias. Neuro: Patient admits to tension type headache but she denies paresthesias or focal neurologic weakness. Heme: Denies any bleeding or bruising Skin: Denies rashes Psychiatric: No complaints voiced related uncontrolled depression or anxiety. Endocrine: No polyuria, polydipsia or polyphagia. The rest of the 14 point ROS was negative except for positives in HPI. Physical Exam Const alert, oriented x3, no apparent distress and well nourished General Appearance: cooperative and well developed HEENT normocephalic, head/scalp atraumatic, moist oral mucous membranes and oropharynx normal Eyes PERRL and EOMs intact bilaterally Neck no lymphadenopathy and supple Lymph Lymphatic: no lymphadenopathy noted and no lymphedema noted Resp normal respiratory effort, normal air movement and clear to auscultation bilaterally Cardio regular rate, regular rhythm, S1 normal heart sound, S2 normal heart sound and no murmurs GI GI Narrative: moderate epigastric abdominal tenderness, no guarding or rebound tenderness. Mild palpable hepatomegaly. NOrmal bowel sounds, nondistended Extremity normal capillary refill, no clubbing, cyanosis or edema and no calf tenderness General Extremity: no tenderness to palpation of joints or extremities Skin General Skin Exam: no breakdown Neuro CN's II-XII intact bilaterally, no focal motor deficits, no sensory deficits noted and deep tendon reflexes 2+ bilaterally Motor Exam: strength 5/5 throughout and general weakness Psych thought process normal and cooperative Appearance: appropriate Lab / Micro Data 12/24/23 05:03 12/24/23 05:03 Labs: Laboratory Results - last 24 hr 12/23/23 19:40: WBC 8.7, RBC 4.32, Hgb 13.9, Hct 38.8, MCV 89.8, MCH 32.2 H, MCHC 35.8, RDW Std Deviation 37.1, RDW Coeff of Donn 11.4 L, Plt Count 211, MPV 9.3, Immature Gran % (Auto) 0.200, Neut % (Auto) 87.8 H, Lymph % (Auto) 7.1 L, Wilkin % (Auto) 4.8, Eos % (Auto) 0.0, Baso % (Auto) 0.1, Absolute Neuts (auto) 7.6, Absolute Lymphs (auto) 0.62 L, Nucleated RBC % 0, Sodium 137, Potassium 3.7, Chloride 107, Carbon Dioxide 23.0, Anion Gap 7, BUN 11, Creatinine 0.93, Estim Creat Clear Calc 89.92, Est GFR (MDRD) Af Amer 89, Est GFR (MDRD) Non-Af 74, BUN/Creatinine Ratio 11.9, Glucose 98, Calcium 8.5, Total Bilirubin 1.70 H, AST 19, ALT 20, Alkaline Phosphatase 52, Total Protein 6.9, Albumin 4.1, Globulin 2.8, Albumin/Globulin Ratio 1.5 12/23/23 21:45: Urine Color Yellow, Urine Clarity Clear, Urine pH 7.0, Ur Specific [place] 1.005, Urine Protein Negative, Urine Glucose (UA) Normal, Urine Ketones 50 H, Urine Occult Blood Negative, Urine Nitrite Negative, Urine Bilirubin Negative, Urine Urobilinogen Normal, Ur Leukocyte Esterase Negative, Urine RBC 0 SEEN, Urine WBC 0-5 SEEN, Ur Squamous Epith Cells 0-5 SEEN, Urine Bacteria 0 SEEN, Urine Mucus 0 SEEN 12/24/23 05:03: WBC 5.3, RBC 3.82 L, Hgb 11.9 L, Hct 35.2 L, MCV 92.1, MCH 31.2, MCHC 33.8 D, RDW Std Deviation 39.1, RDW Coeff of Donn 11.6, Plt Count 172, MPV 9.4, Immature Gran % (Auto) 0.400, Neut % (Auto) 63.8, Lymph % (Auto) 25.9, Wilkin % (Auto) 9.1, Eos % (Auto) 0.6, Baso % (Auto) 0.2, Absolute Neuts (auto) 3.4, Absolute Lymphs (auto) 1.37, Nucleated RBC % 0, Sodium 139, Potassium 3.6, C hloride 112 H, Carbon Dioxide 24.0, Anion Gap 3 L, BUN 9, Creatinine 0.89, Estim Creat Clear Calc 93.96, Est GFR (MDRD) Af Amer 94, Est GFR (MDRD) Non-Af 78, BUN/Creatinine Ratio 10.1, Glucose 87, Calcium 8.1 L, Phosphorus 2.5, Magnesium 2.0, Total Bilirubin 1.10 H, AST 19, ALT 16, Alkaline Phosphatase 45, Total Protein 5.8 L, Albumin 3.3, Globulin 2.5, Albumin/Globulin Ratio 1.3, TSH 0.90 Assessment & Plan Assessment/Plan (1) Duodenal mass: (2) Ileocolitis: (3) Hyperbilirubinemia: (4) Intractable nausea and vomiting: (5) Intractable epigastric abdominal pain: (6) Celiac disease: PLAN: Plan 33-year-old with no significant past medical history except for controlled celiac disease arrives from outside hospital with worsening abdominal pain. CT scan of the abdomen and pelvis done at [facility] revealed a well- circumscribed heterogenous enhancing lesion ~2.3 cm x ~2 cm within the pylorus/proximal duodenum with associated diffuse multifocal small bowel and colonic wall thickening with subtle surrounding inflammation and suspected ileocolitis with mild hyperbilirubinemia of 1.7 mg/dL present on admission in the setting of known celiac disease and recent trip to [place] - Admit to general medical floor under aspiration precautions. Keep strict n.p.o. and give IV morphine as needed for severe (level 6-10 out of 10) pain or tension type headache. She will undergo an upper endoscopy to evaluate upper GI tract for intraluminal lesion. Differential diagnosis does include GIST tumor, duodenal adenoma, focal ischemia, peptic ulcer disease. She still has intractable abdominal pain with intractable nausea and vomiting with bilious emesis complicating. Agree with IV Protonix plus as needed IV Zofran for nausea. Give IM Phenergan as needed for breakthrough nausea vomiting. 3. Previously suspected early acute cystitis; without hematuria at other hospital but UA is negative here - Noted. 4. G2-P2; with hyperemesis gravidarum during both pregnancies with Reglan pump for the first and Zofran pump for the second - Noted. 5. History of listed allergy to Amoxil; which causes rash - Noted. 6. IUD in place with negative urine test at [facility] - Noted. 7. DVT prophylaxis - SCD's only with impending EGD. Total time: Approximately 55 minutes. Charges/Coding Visit Charges Inpatient E&M: 78033 Init Hosp L3
[2023-12-23] MEDS: proMETHazine 25 MG/ML Syringe IM (23:19)
[2023-12-23 23:44] VITALS: BP 138/90; PULSE 92; RESP 19; TEMP 37.2; O2SAT 97
[2023-12-24] VITALS (10 sets, daily range): BP systolic 114–148; BP diastolic 68–85; PULSE 77–104; RESP 13–18; TEMP 36.5–37.2; O2SAT 95–100; BMI 23.6
[2023-12-24] MEDS: 0.9% Normal Saline (1000mL) 1,000 ML 150 ML IV ×3 (03:15→19:22)
[2023-12-24] MEDS: Ondansetron 4 MG/2 ML Vial IV ×2 (05:26→16:54)
[2023-12-24] MEDS: Morphine 2 MG/ML Syringe IV ×4 (05:26→20:35)
[2023-12-24 05:52] LABS: Absolute Lymphocyte Count 1.37 X10^3/uL (0.83-4.51); Absolute Neutrophil Count 3.4 X10^3/uL (2.0-7.7); Basophil# 0.01 X10^3/uL; Basophil% 0.2 % (0-1); Eosinophil# 0.03 X10^3/uL; Eosinophils% 0.6 % (0-5); Hematocrit 35.2 % (37-47); Hemoglobin 11.9 g/dL (12.0-15.0); Lymphocyte # 1.37 X10^3/ul (0.83-4.51); Lymphocyte % 25.9 % (19-41); Mean Corp Hgb Conc 33.8 g/dL (32-36); Mean Corpuscular Hgb 31.2 pg (27.0-32.0); Mean Corpuscular Volume 92.1 fL (81-99); Mean Platelet Vol. 9.4 fl (6.2-12.0); Monocyte# 0.48 X10^3/uL; Monocyte% 9.1 % (0-10); NRBC Flagged by Analyzer 0 % (0-5); Neutrophil # 3.37 X10^3/uL (2.7-7.7); Neutrophil % 63.8 % (47-70); Platelet Count 172 K/mm3 (150-450); RBC Distribution Width CV 11.6 % (11.6-14.6); RBC Distribution Width SD 39.1 fl (35.1-43.9); Red Blood Count 3.82 M/mm3 (4.2-5.4); White Blood Count 5.3 K/mm3 (4.4-11.0)
[2023-12-24 07:14] LABS: ALB/GLOB Ratio 1.3 RATIO (0.9-2.4); AST(SGOT) 19 U/L (15-37); Alanine Aminotransfer ALT/SGPT 16 U/L (13-56); Albumin, Serum 3.3 g/dL (3.2-5.0); Alkaline Phosphatase 45 U/L (45-117); Anion Gap 3 (5-15); BUN 9 mg/dL (7-18); BUN/Creat Ratio 10.1 RATIO (10-20); Calcium,Total 8.1 mg/dL (8.5-10.1); Chloride 112 mmol/L (98-107); Creatinine, Serum 0.89 mg/dL (0.55-1.02); EST Glomerular Filtration Rate 78 mL/min (>60); Est Glom Filt Rate - Afr Amer 94 mL/min (>60); Estimated Creatinine Clearance 93.96 ml/min; Globulin 2.5 g/dL (2.2-4.2); Glucose 87 mg/dL (74-106); Phosphorus 2.5 mg/dL (2.5-4.9); Potassium 3.6 mmol/L (3.5-5.1); Protein, Total 5.8 g/dL (6.4-8.2); Sodium Level 139 mmol/L (136-145)
[2023-12-24] MEDS: Pantoprazole Sodium 40 MG in 0.9% Normal Saline (100mL MB+) 100 ML 330 MG IV (09:47)
[2023-12-24] MEDS: 0.9% Saline Lock 10 ML Syringe IV (10:03)
--- NOTE | 2023-12-24 10:09 | CASEMGMT ---
ANJALI LYNN Assessment: Face to Face with pt for initial transition planning/care coordination assessment. ANJALI LYNN introduced self and role at [facility], pt voices understanding and consents to assessment. Pt lying in bed in no distress, and MIL at bedside. Pt is A&O x4 and answers all questions appropriately at this time. Care providers, pharmacy, and demographics verified/updated. Admitting Dx: Abdominal pain PCP: Archie Specialists: denies Preferred Pharmacy: [facility] Insurance: [place] Prescription Benefit: yes LNOK: Harshad - , Ed & Mckenzie Kaplan - parents Living Arrangements: Pt lives with and 2 children in a 2 story home with 2 steps to enter. Pt states I with ADLs and IADLs. Transportation: Pt drives self and denies concerns with transportation. DME: Denies HHC/SNF: Denies Hx of SNF, received HHC SN after giving to both children, does not recall which agency she used. Pt states no concerns with going home at time of dc. Pt states no further concerns/needs. Pt provided HCPOA paperwork, ANJALI LYNN made a copy of papers. Placed copy in pt chart, returned original HCPOA paperwork back to family. CM to follow. Advised pt to ask CM if any further question/concerns/needs arise, voices understanding. Pt Goal: Home Plan: Home, will continue to follow. Kristal ALBA CM
--- NOTE | 2023-12-24 11:16 | PN_ITS ---
Subjective Subjective Patient seen and examined. Her and [id number] are by her bedside. She denied any abdominal pain. She denied any fever or chills, nausea or vomiting or any other symptoms. She went to outside hospital ER because of incessant abdominal pain. She was seen Teresa for about 2 weeks a few months ago. She says she drank only bottled water then and did not have any GI symptoms while stay. Review of systems otherwise negative. Objective Data Objective Data Vital Signs: Vital Signs Temp Pulse Resp BP Pulse Ox O2 Del Method 97.7 F L 77 18 129/81 H 100 Room Air 12/24/23 07:55 12/24/23 07:55 12/24/23 07:55 12/24/23 07:55 12/24/23 07:55 12/24/23 07:55 Oxygen Delivery Method Room Air Weight: 159 lb 13.362 oz Body Mass Index (BMI) 23.6 Intake & Output: Intake and Output for Last 24 Hours 12/22/23 12/23/23 12/24/23 23:59 23:59 23:59 Intake Total 110 / 110 2062.5 / 2062.5 Output Total 550 / 550 Balance -440 / -440 2.5 / 2061.5 Lab / Micro Data 12/24/23 05:03 12/24/23 05:03 Labs: Laboratory Results - last 24 hr 12/23/23 19:40: WBC 8.7, RBC 4.32, Hgb 13.9, Hct 38.8, MCV 89.8, MCH 32.2 H, MCHC 35.8, RDW Std Deviation 37.1, RDW Coeff of Donn 11.4 L, Plt Count 211, MPV 9.3, Immature Gran % (Auto) 0.200, Neut % (Auto) 87.8 H, Lymph % (Auto) 7.1 L, [place] % (Auto) 4.8, Eos % (Auto) 0.0, Baso % (Auto) 0.1, Absolute Neuts (auto) 7.6, Absolute Lymphs (auto) 0.62 L, Nucleated RBC % 0, Sodium 137, Potassium 3.7, Chloride 107, Carbon Dioxide 23.0, Anion Gap 7, BUN 11, Creatinine 0.93, Estim Creat Clear Calc 89.92, Est GFR (MDRD) Af Amer 89, Est GFR (MDRD) Non-Af 74, BUN/Creatinine Ratio 11.9, Glucose 98, Calcium 8.5, Total Bilirubin 1.70 H, AST 19, ALT 20, Alkaline Phosphatase 52, Total Protein 6.9, Albumin 4.1, Globulin 2.8, Albumin/Globulin Ratio 1.5 12/23/23 21:45: Urine Color Yellow, Urine Clarity Clear, Urine pH 7.0, Ur Specific [place] 1.005, Urine Protein Negative, Urine Glucose (UA) Normal, Urine Ketones 50 H, Urine Occult Blood Negative, Urine Nitrite Negative, Urine Bilirubin Negative, Urine Urobilinogen Normal, Ur Leukocyte Esterase Negative, Urine RBC 0 SEEN, Urine WBC 0-5 SEEN, Ur Squamous Epith Cells 0-5 SEEN, Urine Bacteria 0 SEEN, Urine Mucus 0 SEEN 12/24/23 05:03: WBC 5.3, RBC 3.82 L, Hgb 11.9 L, Hct 35.2 L, MCV 92.1, MCH 31.2, MCHC 33.8 D, RDW Std Deviation 39.1, RDW Coeff of Donn 11.6, Plt Count 172, MPV 9.4, Immature Gran % (Auto) 0.400, Neut % (Auto) 63.8, Lymph % (Auto) 25.9, [place] % (Auto) 9.1, Eos % (Auto) 0.6, Baso % (Auto) 0.2, Absolute Neuts (auto) 3.4, Absolute Lymphs (auto) 1.37, Nucleated RBC % 0, Sodium 139, Potassium 3.6, C hloride 112 H, Carbon Dioxide 24.0, Anion Gap 3 L, BUN 9, Creatinine 0.89, Estim Creat Clear Calc 93.96, Est GFR (MDRD) Af Amer 94, Est GFR (MDRD) Non-Af 78, BUN/Creatinine Ratio 10.1, Glucose 87, Calcium 8.1 L, Phosphorus 2.5, Magnesium 2.0, Total Bilirubin 1.10 H, AST 19, ALT 16, Alkaline Phosphatase 45, Total Protein 5.8 L, Albumin 3.3, Globulin 2.5, Albumin/Globulin Ratio 1.3, TSH 0.90 Physical Exam Const alert, oriented x3, no apparent distress and well nourished General Appearance: cooperative and well developed HEENT normocephalic, head/scalp atraumatic, moist oral mucous membranes and oropharynx normal Eyes PERRL and EOMs intact bilaterally Neck no lymphadenopathy and supple Lymph Lymphatic: no lymphadenopathy noted and no lymphedema noted Resp normal respiratory effort, normal air movement and clear to auscultation bilaterally Cardio regular rate, regular rhythm, S1 normal heart sound, S2 normal heart sound and no murmurs GI GI Narrative: moderate epigastric abdominal tenderness, no guarding or rebound tenderness. Mild palpable hepatomegaly. NOrmal bowel sounds, nondistended Extremity normal capillary refill, no clubbing, cyanosis or edema and no calf tenderness General Extremity: no tenderness to palpation of joints or extremities Skin General Skin Exam: no breakdown Neuro CN's II-XII intact bilaterally, no focal motor deficits, no sensory deficits noted and deep tendon reflexes 2+ bilaterally Motor Exam: strength 5/5 throughout and general weakness Psych thought process normal and cooperative Appearance: appropriate Assessment & Plan Assessment/Plan (1) Intractable nausea and vomiting: (2) Duodenal mass: (3) Celiac disease: (4) Ileocolitis: (5) Hyperbilirubinemia: PLAN: Plan #Intractable abdominal pain * CT abdomen and pelvis done at outside hospital showed well circumscribed heterogenous enhancing lesion ~ 2.3cm x 2cm within the pylorus/proximal duodenum; she also had multifocal small bowl and colonic wall thickening with surrounding inflammation and suspected ileocolitis. * She was in [facility], about 2 months ago. She said she only drank bottled water whilst there and did not have any GI complaints. * She also does have a history of celiac disease. She has mild hepatomegaly on palpation, though CT abdomen did not make any mention of enlarged liver * currently NPO * GI on board. for EGD today * IV zofran and IM phenergan for break through vomiting * hydrate with IVF NS * IV morphine prn for pain. * #Elevated liver enzymes * total bilirubin was 1.7 at outside hospital; now trended down to 1.1. AST/ALT are WNL. * has mild hepatomegaly by my examination, though CT abdomen showed normal sized liver * addi monitor * #History of hyperemesis gravidarum: urine test was negative. has IUD in place DVT prophylaxis; SCDs # Charges/Coding Visit Charges Inpatient E&M: 67263 Subs Hosp L2
[2023-12-24] MEDS: Lactated Ringers 1,000 ML 15 ML IV (12:12)
[2023-12-24 12:42] LABS: Internal QC Validated? YES +Cl - CLEAR BKGD; Pregnancy, Serum, hCG Quali. NEGATIVE Negative
--- NOTE | 2023-12-24 13:06 | CT_ITS ---
STUDY: CTA ABDOMEN AND PELVIS WITH CONTRAST REASON FOR EXAM: Female, 33 years old. Abdominal pain. Celiac disease. History of duodenal mass. Ileocolitis. RADIATION DOSAGE (If Supplied By Facility): CTDIvol = ( 22.86 ) mGy, DLP = ( 573.19 ) mGycm TECHNIQUE: Transaxial images were obtained from the dome of the diaphragm to the symphysis pubis without oral contrast. IV 100mL Isovue-370 was administered. Sagittal and coronal images were reconstructed. Individualized dose optimization techniques were used for this CT. COMPARISON: None. FINDINGS: Increased linear markings at the lung bases slightly more prominent on the right side suggestive of bibasilar atelectasis. The visualized portions of the heart are within normal limits. There is decreased attenuation of the liver consistent with steatosis. Small layering gallstones are seen in the dependent portion of the gallbladder lumen. Normal spleen. Normal pancreas. Normal bilateral adrenal glands. Normal right kidney. Normal left kidney. Normal visualized stomach. Normal small intestine. Thickening of the wall of the ascending colon and proximal transverse colon. Colitis should be ruled out. The appendix is visualized and appears normal. Normal abdominal aorta. Normal inferior vena cava. Normal retroperitoneum. Normal urinary bladder. Small amount of free fluid is seen in the cul-de-sac. IUD is seen within the endometrium. There is a 2.9 cm x 2.9 cm cyst in the left ovary. Small follicles are seen in the right ovary. Normal abdominal wall. Normal osseous structures. CT/CTA Abd/Pelvis W/WO Contrast IMPRESSION: Fatty infiltration of the liver. Findings suggestive of colitis of the ascending colon and transverse colon. Small layering gallstones along the dependent portion of the gallbladder lumen. Fatty infiltration of the liver. Electronically Signed: Sukhjinder Saunders MD at 14:30 EDT ,
--- NOTE | 2023-12-24 13:13 | OP.CCLET_ITS ---
12/24/2023 Davon Almanza Re : Upper GI endoscopy procedure for Karol Giordano Dear Archie This procedure was performed on Sunday, December 24, 2023. My impressions and recommendations are as follows: Impressions : - Normal esophagus. - Normal stomach. - Erythematous duodenopathy. Biopsied. Recommendations : - Discharge patient to home. - Resume previous diet. - Continue present medications. - Await pathology results. My findings are described in the full procedure note, which is enclosed. If I can be of further assistance, please feel free to contact me at . Sincerely, Michael Alexander, 12/24/2023 1:12:31 PM This report has been signed electronically.
--- NOTE | 2023-12-24 13:13 | OP.EGD_ITS ---
Patient Name: Karol Giordano Procedure Date: 12/24/2023 12:45 PM Date of : 1990 Age: 33 Procedure: Upper GI endoscopy Indications: Epigastric abdominal pain Providers: Michael Alexander DO Medicines: Monitored Anesthesia Care Patient Profile: This is a 33 year old female. Refer to note in patient chart for documentation of history and physical. Patient has symptoms of acute epigastric abdominal pain. Complications: No immediate complications. Procedure: Pre-Anesthesia Assessment: - Prior to the procedure, a History and Physical was performed, and patient medications and allergies were reviewed. The patient is competent. The risks and benefits of the procedure and the sedation options and risks were discussed with the patient. All questions were answered and informed consent was obtained. Patient identification and proposed procedure were verified by the physician in the pre-procedure area. Mental Status Examination: alert and oriented. Airway Examination: normal oropharyngeal airway and neck mobility. Respiratory Examination: clear to auscultation. CV Examination: normal. Prophylactic Antibiotics: The patient does not require prophylactic antibiotics. Prior Anticoagulants: The patient has taken no anticoagulant or antiplatelet agents. ASA Grade Assessment: II - A patient with mild systemic disease. After reviewing the risks and benefits, the patient was deemed in satisfactory condition to undergo the procedure. The anesthesia plan was to use monitored anesthesia care (MAC). Immediately prior to administration of medications, the patient was re-assessed for adequacy to receive sedatives. The heart rate, respiratory rate, oxygen saturations, blood pressure, adequacy of pulmonary ventilation, and response to care were monitored throughout the procedure. The physical status of the patient was re-assessed after the procedure. After obtaining informed consent, the endoscope was passed under direct vision. Throughout the procedure, the patient's blood pressure, pulse, and oxygen saturations were monitored continuously. The Endoscope was introduced through the mouth, and advanced to the second part of duodenum. The upper GI endoscopy was accomplished without difficulty. The patient tolerated the procedure well. Scope In: 12:56:31 PM Scope Out: 1:01:45 PM Total Procedure Duration Time 0 hours 5 minutes 14 seconds Findings: The examined esophagus was normal. The entire examined stomach was normal. Patchy mildly erythematous mucosa without active bleeding and with no stigmata of bleeding was found in the second portion of the duodenum. Biopsies were taken with a cold forceps for histology. Verification of patient identification for the specimen was done. Estimated blood loss was minimal. Impression: - Normal esophagus. - Normal stomach. - Erythematous duodenopathy. Biopsied. Recommendation: - Discharge patient to home. - Resume previous diet. - Continue present medications. - Await pathology results. Procedure Code(s): --- Professional --- 04006, Esophagogastroduodenoscopy, flexible, transoral; with biopsy, single or multiple CPT copyright 2021 [employer]. All rights reserved. The codes documented in this report are preliminary and upon ada accommodation consultant review may be revised to meet current compliance requirements. Michael Alexander DO 12/24/2023 1:12:31 PM This report has been signed electronically. Number of Addenda: 0 Note Initiated On: 12/24/2023 12:45 PM
--- NOTE | 2023-12-24 13:30 | EGD_PTH ---
PATIENT: JESSICA BEACH LOC: 3 U#:[id number] AGE/SX: 33/F ROOM: MS308 RE12/23/[address]: Dr. Guadalupe Orr MD : 1990 BED: 1 DIS: 12/27/2023 SPEC #: [id number] RECD: 12/24/23 14:20 STATUS: NED BARROS #: [id number] SEEMA: 12/24/23 13:[address]: Michael Alexander DEPT: SURGICAL PATHOLOGY RECD BY: Maolrie Reynaga ENTERED: 12/25/23 09:56 SP TYPE: EGD BIOPSY OTHR DR: MD Dr. Guadalupe Marcano MD Dr. Rahsaan Friend, DO Dr. Tamera Robotham, MD M Gregory Barton, PA Tissues: Duodenum, NOS Procedures: Surgery Specimen Level IV Comments: @ Ordering doctor for ANALI edited from to @ by RICARDO at 12/25/23 1147 @ Submitting doctor edited from to @ by RICARDO at 12/25/23 1147 HEADER OPERATION: EGD with biopsy PRE-OP DIAGNOSIS: Duodenal mass TISSUE SUBMITTED: Duodenal biopsy MICROSCOPIC DIAGNOSIS Duodenum, biopsy: No pathologic change. CARISA/ 12/26/2023 MICROSCOPIC DESCRIPTION Slides are reviewed. GROSS DESCRIPTION Received in fixative is one container labeled with the patient's name and designated Duodenal biopsy. The specimen consists of two irregular fragments of light solorio soft tissue that in aggregate measure 0.6 x 0.3 x 0.1 cm. The specimen is totally submitted in one cassette. ERICA/ 12/25/2023 TC:5 [facility]:[id number]
[2023-12-24 13:49] LABS: Erythrocyte Sedimentation Rate < 1 mm/hr (0-30)
--- NOTE | 2023-12-24 15:27 | CHAPLAIN ---
Type of Pastoral Visit _x__ Initial Visit ___ Follow-up Visit ___ On-call Visit ___ General Patient Visit ___ Spiritual Assessment ___ Family Conference ___ Bereavement ___ Rapid Response ___ Code Blue ___ Other (describe below) Pastoral Care Referral From _x__ Patient ___ Family ___ Nurse ___ Physician ___ Sleeve Machine Tender ___ Blueprint Reader ___ Other (describe below) Sacrament/Intervention ___ Active listening ___ Anointing ___ Christian ___ Bereavement ___ Communion ___ Elvira exploration ___ ___ Life review ___ Prayer ___ Reconciliation ___ Sacrament of Sick _x__ Supportive presence ___ Wedding ___ Other (describe below) Pastoral Comments patient and spouse were in the hallway and waiting to get moved into the room; pt and spouse have been acquaintances; offered presence and support as desired; asked today how they could be helped; both state that we don't know; can follow up with this family later;
[2023-12-25 01:50] VITALS: BP 137/87; PULSE 62; RESP 20; TEMP 36.4; O2SAT 97
[2023-12-25] MEDS: Ondansetron 4 MG/2 ML Vial IV ×3 (01:57→21:39)
[2023-12-25] MEDS: Morphine 2 MG/ML Syringe IV ×5 (01:58→19:47)
[2023-12-25] MEDS: 0.9% Normal Saline (1000mL) 1,000 ML 150 ML IV ×3 (03:01→19:47)
[2023-12-25 04:45] VITALS: BP 137/90; PULSE 66; RESP 16; TEMP 36.4; O2SAT 100
[2023-12-25] MEDS: HYDROmorphone 0.5 MG/0.5 ML SYRINGE IV ×2 (04:46→21:39)
[2023-12-25 06:00] VITALS: BMI 23.3
[2023-12-25] MEDS: 0.9% Saline Lock 10 ML Syringe IV (07:29)
[2023-12-25 08:26] LABS: Absolute Lymphocyte Count 1.79 X10^3/uL (0.83-4.51); Absolute Neutrophil Count 2.4 X10^3/uL (2.0-7.7); Basophil# 0.01 X10^3/uL; Basophil% 0.2 % (0-1); Eosinophil# 0.14 X10^3/uL; Eosinophils% 2.9 % (0-5); Hematocrit 32.4 % (37-47); Lymphocyte # 1.79 X10^3/ul (0.83-4.51); Lymphocyte % 37.7 % (19-41); Mean Corpuscular Hgb 31.9 pg (27.0-32.0); Mean Corpuscular Volume 93.9 fL (81-99); Mean Platelet Vol. 9.4 fl (6.2-12.0); Monocyte# 0.45 X10^3/uL; Monocyte% 9.5 % (0-10); NRBC Flagged by Analyzer 0 % (0-5); Neutrophil # 2.35 X10^3/uL (2.7-7.7); Neutrophil % 49.5 % (47-70); Platelet Count 159 K/mm3 (150-450); RBC Distribution Width CV 11.5 % (11.6-14.6); RBC Distribution Width SD 39.1 fl (35.1-43.9); Red Blood Count 3.45 M/mm3 (4.2-5.4); White Blood Count 4.8 K/mm3 (4.4-11.0)
[2023-12-25 08:53] LABS: ALB/GLOB Ratio 1.2 RATIO (0.9-2.4); AST(SGOT) 16 U/L (15-37); Alanine Aminotransfer ALT/SGPT 15 U/L (13-56); Albumin, Serum 3.1 g/dL (3.2-5.0); Alkaline Phosphatase 39 U/L (45-117); Anion Gap 2 (5-15); BUN 6 mg/dL (7-18); BUN/Creat Ratio 8.3 RATIO (10-20); Chloride 113 mmol/L (98-107); Creatinine, Serum 0.72 mg/dL (0.55-1.02); EST Glomerular Filtration Rate 99 mL/min (>60); Est Glom Filt Rate - Afr Amer 119 mL/min (>60); Estimated Creatinine Clearance 116.14 ml/min; Globulin 2.6 g/dL (2.2-4.2); Glucose 79 mg/dL (74-106); Potassium 3.6 mmol/L (3.5-5.1); Protein, Total 5.7 g/dL (6.4-8.2); Sodium Level 140 mmol/L (136-145)
[2023-12-25] MEDS: Pantoprazole Sodium 40 MG in 0.9% Normal Saline (100mL MB+) 100 ML 330 MG IV (09:40)
[2023-12-25 09:44] VITALS: BP 136/96; PULSE 68; RESP 16; TEMP 36.7; O2SAT 100
--- NOTE | 2023-12-25 10:19 | US_ITS ---
STUDY: ABDOMINAL ULTRASOUND - RIGHT UPPER QUADRANT REASON FOR VISIT: Female, 33 years old abd pain TECHNIQUE: Ultrasound evaluation of the right upper quadrant was performed with real-time and static naik-scale imaging. TECHNICAL QUALITY: Adequate. COMPARISON: Comparison is made with prior CT scan abdomen and pelvis dated December 24, 2023. FINDINGS: Liver: The liver is enlarged and measures 18.5 cm. There is increased echogenicity consistent with fatty infiltration. The bile ducts are within normal limits. There is hepatic color flow. The direction of portal flow is hepatopetal. There is no demonstrated mass lesion. Gallbladder: Normal distended gallbladder. The gallbladder wall measures 2 mm. There is a positive sonographic Abbasi''s sign. There is no pericholecystic fluid. There are no gallstones. Common Bile Duct (C.B.D.): The common bile duct measures 2 mm. Pancreas: Normal size of the head, body and tail of the pancreas. There is normal echogenicity of the pancreas. There is no demonstrated pancreatic mass or cyst. Right Kidney: Normal size of the right kidney. The right kidney measures 11.2 cm x 4.3 cm x 4 cm. Normal renal cortex. The right cortex measures 1.2 cm. There is no demonstrated renal mass or cyst. There is no right hydronephrosis. US/Gallbladder IMPRESSION: Fatty infiltration of the liver. Positive Abbasi''s sign. No gallstone seen on this examination. Electronically Signed: Sukhjinder Saunders MD at 12:17 EDT ,
--- NOTE | 2023-12-25 10:29 | NM_ITS ---
CLINICAL: 33-year-old female with history of abdominal pain. RADIONUCLIDE HEPATOBILIARY SCINTIGRAPHY COMPARISON: Gallbladder ultrasound report 12/25/2023 FINDINGS: Following the intravenous administration of 5.4 mCi of 99m Tc Mebrofenin, hepatobiliary images reveal: 1. Relatively prompt and homogeneous radiopharmaceutical concentration is noted by a normal sized liver. No parenchymal defects are identified. 2. Gallbladder activity is identified at 30 minutes post radiopharmaceutical administration. 3. Small intestinal tract is not visualized during 60 minutes of pre-CCK sequential imaging. Small bowel activity is identified following the administration of cholecystokinin. 4. Washout of the radiopharmaceutical by the hepatic parenchyma appears qualitatively normal. Cholecystokinin (0.02 ug/kg) was administered intravenously over a 30-minute period. The post CCK gallbladder ejection fraction calculated at 19 minutes following Cholecystokinin administration was noted to be 2.0 % (normal greater than 35%). TX/Hepatobilliary Img w/Pharm Int IMPRESSION: 1. ABNORMAL 99m Tc Mebrofenin hepatobiliary imaging examination with Cholecystokinin. A. A gallbladder ejection fraction calculated to be less than 35% following the administration of Cholecystokinin is consistent with the presence of functional hepatobiliary disease (gallbladder and/or sphincter of Oddi dyskinesia) and/or organic hepatobiliary disease (chronic acalculous cholecystitis and/or cystic duct syndrome) in patients with intermediate to high pretest likelihoods of hepatobiliary illness. (Analilia Rich et al, Journal of Nuclear Medicine 32:1695, 1991). Electronically Signed: Francisco Mercedes DO at 14:18 EDT ,
--- NOTE | 2023-12-25 10:39 | CON.PCM.SX_ITS ---
Assessment & Plan Assessment/Plan (1) Ileocolitis: (2) Intractable epigastric abdominal pain: (3) Intractable nausea and vomiting: PLAN: Plan 33-year-old female now on day #3 of intractable nausea vomiting and abdominal pain. She notes the pain is 7 out of 10. Images suggest possible ileocolitis. Possible layering gallstones. She has no white blood cell count or left shift. Liver function tests are normal. Seems to have pain out of proportion to otherwise expectations. As noted I did have discussed verbally discussed this patient with Dr. Michael Dove. At this moment he is not advising the use of antibiotics or steroids. I do recommend following through with a gallbladder ultrasound and hepatobiliary scan. Pending these results we will provide further recommendations. The degree of her pain and persistent nausea is atypical for primary gallbladder disease in conjunction with otherwise normal laboratory. I appreciate the opportunity of assisting with her surgical care. Will continue to follow and advise. Navid Pepe M.D., F.A.C.S. HPI Consult Data Date of Consult: 12/25/23 HPI Narrative Reason for Consultation: Nausea vomiting and abdominal pain HPI Narrative: JESSICA BEACH, is a 33 F who presents to the [facility] in transfer from [facility] on December 23, 2023. I been asked to see her today December 25, 2023 to assist with diagnosis of intractable nausea vomiting and abdominal pain. Written copy my surgical consult will be present on the charting. The patient states that on December 22 she awoke at 2 AM with a severe burning sensation in the epigastrium. Within an hour she then had severe nausea and vomiting. Initially it was bilious but then later on it turned into dry heaves. Because of the severity of her problem she went to [facility] ER. CT was done suggesting may be a duodenal mass and ileocolitis. She was treated with narcotics and antiemetics without benefit. She was then transferred to the [facility] ostensibly for GI consult and treatment. The patient was seen in consultation by Dr. Abhay dove yesterday December 24, 2023 and had an upper endoscopy same day. There was concern on CT that there was a mass in the duodenum and this was found not to be the case based upon Dr. Dove's upper scope. Some mild patchy erythema of the duodenum. Biopsies pending. The patient however continues to have pain. There was concern about possible ileocolitis on the CT imaging. I have had the opportunity discussed with Dr. Michael Dove this finding and this is felt to be somewhat mild. Patient's not had any diarrhea. She had a normal stool 2 days ago. It is impressive however how her persistence in the abdominal pain and persistent nausea continues. At this moment Dr. Dove is not recommending a trial of antibiotics nor steroids without tissue diagnosis. He offered the potential of pursuing a unprepped colonoscopy but certainly recognized the inherent difficulties with that as well The patient has remote history 10 years ago being diagnosed with celiac disease but this was not a tissue diagnosis. As noted she had a trip to [place] 2 months earlier but had not had any acute illness associated with that. She has been completely well until the sudden onset of this illness. She has not had any previous abdominal operations. The initial pain was an epigastric burning pain and this would wax and wane. Then it became more of a constant cramping pain. As noted on review her white blood cell count was normal. Her CRP on December 23 was 38.3. Initially her total bilirubin was slightly elevated at 1.7 but then rapidly normalized. Today all of her liver function tests are normal. This is despite her claiming a 7 out of 10 pain and ongoing nausea. CT imaging that was obtained yesterday with IV contrast showed steatosis of the liver. Suspected some layering gallstones in the gallbladder. Normal small intestine. Thickening of the wall of the ascending colon and proximal transverse colon. [facility] Home Medications ?Medication ?Instructions ?Recorded ?Last Taken ?Type multivitamin 1 tab PO DAILY 12/23/23 Unknown History Allergy/AdvReac Type Severity Reaction Status Date / Time amoxicillin (Amoxicillin) Allergy Rash Verified 04/22/18 13:43 hydrocodone bitartrate (From AdvReac Vomiting Verified 04/22/18 13:43 Vicodin) Surgical History History of adenoidectomy History of tonsillectomy Social History Smoking Status: Never smoker ROS Constitutional Constitutional: Reports chills; Denies fever(s) Eyes Eyes: Reports systems reviewed and no addt'l complaints, except as documented ENT HEENT: Reports systems reviewed and no addt'l complaints, except as documented Cardiovascular Cardiovascular: Reports systems reviewed and no addt'l complaints, except as documented Respiratory/Chest Respiratory/Chest: Reports systems reviewed and no addt'l complaints, except as documented Gastrointestinal Gastrointestinal: Reports abdominal pain, nausea and vomiting; Denies bloating, change in bowel habits, coffee ground emesis, diarrhea, hematemesis, hematochezia or melena Musculoskeletal Musculoskeletal: Reports systems reviewed and no addt'l complaints, except as documented Psychiatric Psychiatric: Reports systems reviewed and no addt'l complaints, except as documented Physical Exam Const alert and oriented x3 Constitutional Narrative: Patient is lying in bed. She appears uncomfortable. General Appearance: cooperative HEENT normocephalic Eyes PERRL Lymph Lymphatic: no lymphadenopathy noted Resp normal respiratory effort and clear to auscultation bilaterally Effort and Inspection: able to speak in complete sentences Cardio Rate: regular rate Rhythm: regular rhythm GI GI Narrative: Slightly distended. Bowel sounds diminished. No focal tenderness in the left lower quadrant or left upper quadrant. Tenderness to mild palpation noted in the right lower quadrant the right mid abdomen and the right upper quadrant. No mass Extremity normal to inspection Skin no rashes or lesions noted Neuro CN's II-XII intact bilaterally Psych mental status grossly normal Lab / Micro Data 12/25/23 07:56 12/25/23 07:56 Labs: Laboratory Results - last 24 hr 12/24/23 05:03: ESR < 1, C-React Prot Ext Range 38.30 H, Serum , Qual NEGATIVE 12/25/23 07:56: WBC 4.8, RBC 3.45 L, Hgb 11.0 L, Hct 32.4 L, MCV 93.9, MCH 31.9, MCHC 34.0, RDW Std Deviation 39.1, RDW Coeff of Donn 11.5 L, Plt Count 159, MPV 9.4, Immature Gran % (Auto) 0.200, Neut % (Auto) 49.5, Lymph % (Auto) 37.7, [place] % (Auto) 9.5, Eos % (Auto) 2.9, Baso % (Auto) 0.2, Absolute Neuts (auto) 2.4, Absolute Lymphs (auto) 1.79, Nucleated RBC % 0, Sodium 140, Potassium 3.6, C hloride 113 H, Carbon Dioxide 25.0, Anion Gap 2 L, BUN 6 L, Creatinine 0.72, Estim Creat Clear Calc 116.14, Est GFR (MDRD) Af Amer 119, Est GFR (MDRD) Non-Af 99, BUN/Creatinine Ratio 8.3 L, Glucose 79, Calcium 8.0 L, Total Bilirubin 0.60, AST 16, ALT 15, Alkaline Phosphatase 39 L, Total Protein 5.7 L, Albumin 3.1 L, Globulin 2.6, Albumin/Globulin Ratio 1.2 Imaging Radiology Impression Abdomen/Pelvis CTA 12/24/23 13:06 IMPRESSION: Fatty infiltration of the liver. Findings suggestive of colitis of the ascending colon and transverse colon. Small layering gallstones along the dependent portion of the gallbladder lumen. Fatty infiltration of the liver. Electronically Signed: Sukhjinder Saunders MD at 14:30 EDT ,
--- NOTE | 2023-12-25 11:14 | PN_ITS ---
Subjective Subjective Patient seen and examined. Her was by her bedside. She still complains of abdominal pain and states the pain is mainly in her right upper quadrant now. She denies any nausea or vomiting and has not had any diarrhea. She is not able to tolerate any food or liquids because of the abdominal pain. Review of systems otherwise negative. Objective Data Objective Data Vital Signs: Vital Signs Temp Pulse Resp BP Pulse Ox O2 Del Method 98.1 F 68 16 136/96 H 100 Room Air 12/25/23 09:44 12/25/23 09:44 12/25/23 09:44 12/25/23 09:44 12/25/23 09:44 12/25/23 09:44 Oxygen Delivery Method Room Air Weight: 157 lb 3.033 oz Body Mass Index (BMI) 23.3 Intake & Output: Intake and Output for Last 24 Hours 12/23/23 12/24/23 12/25/23 23:59 23:59 23:59 Intake Total 110 / 110 3229.5 / 3229.5 2245 / 2245 Output Total 550 / 550 0 / 0 Balance -440 / -440 3229.5 / 3229.5 2245 / 2245 Lab / Micro Data 12/25/23 07:56 12/25/23 07:56 Labs: Laboratory Results - last 24 hr 12/24/23 05:03: ESR < 1, C-React Prot Ext Range 38.30 H, Serum , Qual NEGATIVE 12/25/23 07:56: WBC 4.8, RBC 3.45 L, Hgb 11.0 L, Hct 32.4 L, MCV 93.9, MCH 31.9, MCHC 34.0, RDW Std Deviation 39.1, RDW Coeff of Donn 11.5 L, Plt Count 159, MPV 9.4, Immature Gran % (Auto) 0.200, Neut % (Auto) 49.5, Lymph % (Auto) 37.7, [place] % (Auto) 9.5, Eos % (Auto) 2.9, Baso % (Auto) 0.2, Absolute Neuts (auto) 2.4, Absolute Lymphs (auto) 1.79, Nucleated RBC % 0, Sodium 140, Potassium 3.6, C hloride 113 H, Carbon Dioxide 25.0, Anion Gap 2 L, BUN 6 L, Creatinine 0.72, Estim Creat Clear Calc 116.14, Est GFR (MDRD) Af Amer 119, Est GFR (MDRD) Non-Af 99, BUN/Creatinine Ratio 8.3 L, Glucose 79, Calcium 8.0 L, Total Bilirubin 0.60, AST 16, ALT 15, Alkaline Phosphatase 39 L, Total Protein 5.7 L, Albumin 3.1 L, Globulin 2.6, Albumin/Globulin Ratio 1.2 Radiography Diagnostic Testing: Radiology Impression Abdomen/Pelvis CTA 12/24/23 13:06 IMPRESSION: Fatty infiltration of the liver. Findings suggestive of colitis of the ascending colon and transverse colon. Small layering gallstones along the dependent portion of the gallbladder lumen. Fatty infiltration of the liver. Electronically Signed: Sukhjinder Saunders MD at 14:30 EDT , Physical Exam Const alert, oriented x3, average body habitus, healthy appearing and well nourished Constitutional Narrative: in moderate distress due to abdominal pain General Appearance: cooperative and well developed HEENT normocephalic, head/scalp atraumatic, hearing grossly normal bilaterally, moist oral mucous membranes and oropharynx normal Eyes PERRL and EOMs intact bilaterally Neck no lymphadenopathy and supple Lymph Lymphatic: no lymphadenopathy noted and no lymphedema noted Resp normal respiratory effort, normal air movement, no retractions, no use of accessory muscles and clear to auscultation bilaterally Cardio regular rate, regular rhythm, S1 normal heart sound, S2 normal heart sound and no murmurs GI soft to palpation GI Narrative: moderate RUQ tenderness, no guarding or rebound tenderness. Abbasi's sign is equivocal Extremity normal to inspection, full ROM, normal capillary refill, no clubbing, cyanosis or edema and no calf tenderness General Extremity: no tenderness to palpation of joints or extremities Skin General Skin Exam: no breakdown Neuro oriented x3, CN's II-XII intact bilaterally, moves all extremities, no focal motor deficits, no sensory deficits noted and deep tendon reflexes 2+ bilaterally Sensorium / Orientation: awake, alert, oriented to person, oriented to place and oriented to time Speech: speech normal Motor Exam: strength 5/5 throughout Psych Psych Narrative: Patient is tearful and in obvious distress due to abdominal pain Appearance: appropriate Mood & Affect: anxious Assessment & Plan Assessment/Plan (1) Intractable nausea and vomiting: (2) Duodenal mass: (3) Celiac disease: (4) Ileocolitis: (5) Hyperbilirubinemia: PLAN: Plan #Intractable abdominal pain * CT abdomen and pelvis done at outside hospital showed well circumscribed heterogenous enhancing lesion ~ 2.3cm x 2cm within the pylorus/proximal duodenum; she also had multifocal small bowl and colonic wall thickening with surrounding inflammation and suspected ileocolitis. * She was in [facility] [place], about 2 months ago. She said she only drank bottled water whilst there and did not have any GI complaints. * She also does have a history of celiac disease. She has mild hepatomegaly on palpation, though CT abdomen did not make any mention of enlarged liver * had EGD which showed mild duodenitis but did not show any mass * Repeat CT abdomen/pelvis done showed colitis of the ascending and transverse colon as well as small dependent, layering gallstones * Will consult general surgery in light of the equivocal Abbasi sign and findings with small dependent layering gallstones. * IV zofran and IM phenergan for break through vomiting * hydrate with IVF NS * IV morphine prn for pain. * #Elevated liver enzymes * liver enzymes are trending downward and have normalised. * repeat CT showed hepatic steatosis. * will monitor. * #History of celiac disease * States she was diagnosed with celiac disease when she was with 8 bagel. She has not had any flareups since then. * She is not sure if she has had formal diagnosis for celiac disease. * Will benefit from follow-up with gastroenterology on outpatient basis. * #History of hyperemesis gravidarum: urine test was negative. has IUD in place DVT prophylaxis; SCDs Charges/Coding Visit Charges Inpatient E&M: 77760 Subs Hosp L2
[2023-12-25 13:38] VITALS: BP 138/83; PULSE 72; RESP 16; TEMP 36.2; O2SAT 99
--- NOTE | 2023-12-25 15:14 | CHAPLAIN ---
Type of Pastoral Visit ___ Initial Visit _x__ Follow-up Visit ___ On-call Visit ___ General Patient Visit ___ Spiritual Assessment ___ Family Conference ___ Bereavement ___ Rapid Response ___ Code Blue ___ Other (describe below) Pastoral Care Referral From ___ Patient _x__ Family ___ Nurse ___ Physician ___ Medical Coding Instructor ___ Feather Curling Machine Operator ___ Other (describe below) Sacrament/Intervention _x__ Active listening ___ Anointing ___ Uatsdin ___ Bereavement ___ Communion _x__ Elvira exploration ___ _x__ Life review _x__ Prayer ___ Reconciliation ___ Sacrament of Sick ___ Supportive presence ___ Wedding ___ Other (describe below) Pastoral Comments patient was out of the room for more testing and spouse reports that pain and discomfort persist; offer of support to spouse and mother who are in the room; both welcome presence and prayer; mother is interactive and verbal about life and the situation; offer of ongoing support given as the family or patient desires
[2023-12-25 15:35] LABS: Erythrocyte Sedimentation Rate 3 mm/hr (0-30)
--- NOTE | 2023-12-25 15:50 | PN.SURG_ITS ---
Subjective Subjective Patient continues to have pain. Gallbladder ultrasound did not show gallstones. Common bile duct 2 mm. Abbasi sign identified. No wall thickening. Hepatobiliary scan was abnormal with an ejection fraction of 2%. More pertinently the patient did have escalation of her right upper quadrant discomfort with the CCK injection. Objective Data Objective Data Vital Signs: Vital Signs Temp Pulse Resp BP Pulse Ox O2 Del Method 97.2 F L 72 16 138/83 H 99 Room Air 12/25/23 13:38 12/25/23 13:38 12/25/23 13:38 12/25/23 13:38 12/25/23 13:38 12/25/23 13:38 Oxygen Delivery Method Room Air Weight: 157 lb 3.033 oz Body Mass Index (BMI) 23.3 Intake & Output: Intake and Output for Last 24 Hours 12/23/23 12/24/23 12/25/23 23:59 23:59 23:59 Intake Total 110 / 110 3229.5 / 3229.5 2245 / 2245 Output Total 550 / 550 0 / 0 Balance -440 / -440 3229.5 / 3229.5 2245 / 2245 Lab / Micro Data 12/25/23 07:56 12/25/23 07:56 Labs: Laboratory Results - last 24 hr 12/25/23 07:56: WBC 4.8, RBC 3.45 L, Hgb 11.0 L, Hct 32.4 L, MCV 93.9, MCH 31.9, MCHC 34.0, RDW Std Deviation 39.1, RDW Coeff of Donn 11.5 L, Plt Count 159, MPV 9.4, Immature Gran % (Auto) 0.200, Neut % (Auto) 49.5, Lymph % (Auto) 37.7, [place] % (Auto) 9.5, Eos % (Auto) 2.9, Baso % (Auto) 0.2, Absolute Neuts (auto) 2.4, Absolute Lymphs (auto) 1.79, Nucleated RBC % 0, ESR 3, Sodium 140, Potassium 3.6, Chloride 113 H, Carbon Dioxide 25.0, Anion Gap 2 L, BUN 6 L, Creatinine 0.72, Estim Creat Clear Calc 116.14, Est GFR (MDRD) Af Amer 119, Est GFR (MDRD) Non-Af 99, BUN/Creatinine Ratio 8.3 L, Glucose 79, Calcium 8.0 L, Total Bilirubin 0.60, AST 16, ALT 15, Alkaline Phosphatase 39 L, C-React Prot Ext Range 28.70 H, Total Protein 5.7 L, Albumin 3.1 L, Globulin 2.6, Albumin/Globulin Ratio 1.2 Radiography Diagnostic Testing: Radiology Impression Gallbladder Ultrasound 12/25/23 10:19 IMPRESSION: Fatty infiltration of the liver. Positive Abbasi''s sign. No gallstone seen on this examination. Electronically Signed: Sukhjinder Saunders MD at 12:17 EDT , Hepatobiliary Scan Nuclear Medicine 12/25/23 10:29 IMPRESSION: 1. ABNORMAL 99m Tc Mebrofenin hepatobiliary imaging examination with Cholecystokinin. A. A gallbladder ejection fraction calculated to be less than 35% following the administration of Cholecystokinin is consistent with the presence of functional hepatobiliary disease (gallbladder and/or sphincter of Oddi dyskinesia) and/or organic hepatobiliary disease (chronic acalculous cholecystitis and/or cystic duct syndrome) in patients with intermediate to high pretest likelihoods of hepatobiliary illness. (Analilia Rich et al, Journal of Nuclear Medicine 32:1695, 1991). Electronically Signed: Francisco Mercedes DO at 14:18 EDT , Assessment & Plan Assessment/Plan (1) Biliary dyskinesia: PLAN: In detail I described to the patient and her the concept of biliary dyskinesia causing severe abdominal pain. Demonstrated to them a diagram. All upon review of the patient's EGD there was some striae of the stomach but that may have been related to her significant vomiting and retching. She is now on her second dosing of pantoprazole continues to have the pain and nausea. I propose for her laparoscopic cholecystectomy with selective cholangiography. I have discussed the technique and benefit and risks and complications alternatives. Based upon her presentation and imaging findings I do believe that it is reasonable to offer her this procedure. She is aware of the potential for a false positive result of the hepatobiliary scan based upon her fasting and narcotic usage. We will continue with the pantoprazole today. I will recheck her first thing tomorrow morning. If her pain nausea and vomiting is resolved then we may cancel proceeding with surgery. If she is still having significant discomfort and nausea and then I propose that we proceed. I do not have any other treatment options as noted in my consult do not have at this point a further gastroenterology etiology and/or treatment. Navid Pepe M.D., F.A.C.S.
--- NOTE | 2023-12-25 17:46 | EX.PCM.PN.GI ---
Subjective Subjective Patient was seen by surgical team. Plan is for possible cholecystectomy in the a.m. She still having a lot of abdominal pain and requiring constant narcotics. Objective Data Objective Data Vital Signs: Vital Signs Temp Pulse Resp BP Pulse Ox O2 Del Method 97.1 F L 76 16 160/102 H 100 Room Air 12/26/23 17:41 12/26/23 17:41 12/26/23 17:41 12/26/23 17:41 12/26/23 17:41 12/26/23 17:41 Oxygen Delivery Method Room Air Weight: 157 lb 10.088 oz Body Mass Index (BMI) 23.3 Intake & Output: Intake and Output for Last 24 Hours 12/24/23 12/25/23 12/26/23 23:59 23:59 23:59 Intake Total 3229.5 / 3229.5 3037.5 / 3917.5 2987.5 / 2987.5 Output Total 0 / 0 Balance 3229.5 / 3229.5 3037.5 / 3917.5 2987.5 / 2987.5 Lab / Micro Data 12/26/23 06:25 12/26/23 06:25 Labs: Laboratory Results - last 24 hr 12/25/23 07:56: Amylase 33, Lipase 24 12/26/23 06:25: WBC 5.0, RBC 3.57 L, Hgb 11.3 L, Hct 32.6 L, MCV 91.3, MCH 31.7, MCHC 34.7, RDW Std Deviation 38.2, RDW Coeff of Donn 11.3 L, Plt Count 190, MPV 9.4, Immature Gran % (Auto) 0.200, Neut % (Auto) 54.4, Lymph % (Auto) 33.4, [place] % (Auto) 8.2, Eos % (Auto) 3.6, Baso % (Auto) 0.2, Absolute Neuts (auto) 2.7, Absolute Lymphs (auto) 1.67, Nucleated RBC % 0, PT 15.1 H, INR 1.2, APTT 29.4, Sodium 139, Potassium 3.3 L, Chloride 110 H, Carbon Dioxide 24.0, Anion Gap 5, BUN 3 L, Creatinine 0.73, Estim Creat Clear Calc 114.55, Est GFR (MDRD) Af Amer 118, Est GFR (MDRD) Non-Af 97, BUN/Creatinine Ratio 4.1 L, Glucose 77, Calcium 8.5, Total Bilirubin 0.80, Direct Bilirubin 0.23, AST 22, ALT 20, Alkaline Phosphatase 41 L, Total Protein 5.8 L, Albumin 3.3, Globulin 2.5 12/26/23 08:06: Urine Test Negative Radiography Diagnostic Testing: Radiology Impression Hepatobiliary Scan Nuclear Medicine 12/25/23 10:29 IMPRESSION: 1. ABNORMAL 99m Tc Mebrofenin hepatobiliary imaging examination with Cholecystokinin. A. A gallbladder ejection fraction calculated to be less than 35% following the administration of Cholecystokinin is consistent with the presence of functional hepatobiliary disease (gallbladder and/or sphincter of Oddi dyskinesia) and/or organic hepatobiliary disease (chronic acalculous cholecystitis and/or cystic duct syndrome) in patients with intermediate to high pretest likelihoods of hepatobiliary illness. (Analilia Rich et al, Journal of Nuclear Medicine 32:1695, 1990). Electronically Signed: Francisco Mercedes DO at 14:18 EDT , Physical Exam Const alert, oriented x3, average body habitus, healthy appearing and well nourished Constitutional Narrative: in moderate distress due to abdominal pain General Appearance: cooperative and well developed HEENT normocephalic, head/scalp atraumatic, hearing grossly normal bilaterally, moist oral mucous membranes and oropharynx normal Eyes PERRL and EOMs intact bilaterally Neck no lymphadenopathy and supple Lymph Lymphatic: no lymphadenopathy noted and no lymphedema noted Resp normal respiratory effort, normal air movement, no retractions, no use of accessory muscles and clear to auscultation bilaterally Cardio regular rate, regular rhythm, S1 normal heart sound, S2 normal heart sound and no murmurs GI soft to palpation GI Narrative: moderate RUQ tenderness, no guarding or rebound tenderness. Abbasi's sign is positive Extremity normal to inspection, full ROM, normal capillary refill, no clubbing, cyanosis or edema and no calf tenderness General Extremity: no tenderness to palpation of joints or extremities Skin General Skin Exam: no breakdown Neuro oriented x3, CN's II-XII intact bilaterally, moves all extremities, no focal motor deficits, no sensory deficits noted and deep tendon reflexes 2+ bilaterally Sensorium / Orientation: awake, alert, oriented to person, oriented to place and oriented to time Speech: speech normal Motor Exam: strength 5/5 throughout and general weakness Psych thought process normal and cooperative Psych Narrative: Patient is tearful and in obvious distress due to abdominal pain Appearance: appropriate Mood & Affect: anxious Assessment & Plan Assessment/Plan (1) Duodenal mass: (2) Ileocolitis: (3) Hyperbilirubinemia: (4) Intractable nausea and vomiting: (5) Intractable epigastric abdominal pain: (6) Celiac disease: PLAN: Plan 33-year-old with intractable abdominal pain of unsure origin at this time. CT scan of the abdomen and pelvis done at [facility] revealed a well-circumscribed heterogenous enhancing lesion ~2.3 cm x ~2 cm within the pylorus/proximal duodenum with associated diffuse multifocal small bowel and colonic wall thickening with subtle surrounding inflammation and suspected ileocolitis with mild hyperbilirubinemia of 1.7 mg/dL present on admission in the setting of known celiac disease and recent trip to [place]. She underwent an upper endoscopy and there was no sign of any acute pathology that would elicited severe pain. Patient is currently being evaluated for cholecystectomy. She underwent a HIDA scan which showed low ejection fraction of 2%. I thought possibly that she could be experiencing some intermittent ischemia so CT angiography was ordered but did not reveal any acute pathology of the small bowel. It did reveal some acute pathology with inflammation in the colon. Patient had all questions answered.
[2023-12-25 18:27] LABS: Amylase 33 U/L (25-115); Lipase 24 U/L (13-75)
[2023-12-25 19:47] VITALS: BP 134/87; PULSE 64; RESP 16; TEMP 36.9; O2SAT 98
[2023-12-26] VITALS (16 sets, daily range): BP systolic 129–163; BP diastolic 68–108; PULSE 56–76; RESP 14–20; TEMP 36.2–37.2; O2SAT 97–100; BMI 23.3
[2023-12-26] MEDS: 0.9% Normal Saline (1000mL) 1,000 ML 150 ML IV ×3 (02:17→21:54)
[2023-12-26] MEDS: HYDROmorphone 0.5 MG/0.5 ML SYRINGE IV ×3 (02:17→21:53)
--- NOTE | 2023-12-26 05:00 | EKG12_ITS ---
Test Reason : PRE-OP Blood Pressure : / mmHG Vent. Rate : 065 BPM Atrial Rate : 065 BPM P-R Int : 170 ms QRS Dur : 100 ms QT Int : 406 ms P-R-T Axes : 027 064 048 degrees QTc Int : 422 ms Normal sinus rhythm RSR' or QR pattern in V1 suggests right ventricular conduction delay Borderline ECG When compared with ECG of 07-SEP-2015 17:20, Vent. rate has decreased BY 59 BPM T wave inversion no longer evident in Inferior leads Confirmed by Jimi Ruggiero ([id number]), medical transcription editor SHAHZAD STRANGE ([id number]) on 12/26/2023 9:07:31 AM Referred By: MAMADOU Confirmed By:Jimi Ruggiero
[2023-12-26] MEDS: DiphenhydrAMINE 50 MG/ML Syringe 25 MG IV (06:09)
--- NOTE | 2023-12-26 06:17 | PN.SURG_ITS ---
Subjective Subjective Patient tearful. Just came she has had a very bad night severe pain in the right upper quadrant area radiating down the right subcostal area. Waves of nausea. She was able to tolerate water up until midnight when we made her n.p.o. She has had flatus but no bowel movements since admission. No diarrhea. No bright red blood per rectum or melena. She notes that Dr. Alexander did visit her again last night. Objective Data Objective Data Vital Signs: Vital Signs Temp Pulse Resp BP Pulse Ox O2 Del Method 98.5 F 63 14 139/83 H 100 Room Air 12/26/23 02:15 12/26/23 02:15 12/26/23 02:15 12/26/23 02:15 12/26/23 02:15 12/26/23 02:15 Oxygen Delivery Method Room Air Weight: 157 lb 10.088 oz Body Mass Index (BMI) 23.3 Intake & Output: Intake and Output for Last 24 Hours 12/24/23 12/25/23 12/26/23 23:59 23:59 23:59 Intake Total 3229.5 / 3229.5 3037.5 / 3917.5 1855 / 1855 Output Total 0 / 0 Balance 3229.5 / 3229.5 3037.5 / 3917.5 1855 / 1855 Lab / Micro Data 12/25/23 07:56 12/25/23 07:56 Labs: Laboratory Results - last 24 hr 12/25/23 07:56: WBC 4.8, RBC 3.45 L, Hgb 11.0 L, Hct 32.4 L, MCV 93.9, MCH 31.9, MCHC 34.0, RDW Std Deviation 39.1, RDW Coeff of Donn 11.5 L, Plt Count 159, MPV 9.4, Immature Gran % (Auto) 0.200, Neut % (Auto) 49.5, Lymph % (Auto) 37.7, [place] % (Auto) 9.5, Eos % (Auto) 2.9, Baso % (Auto) 0.2, Absolute Neuts (auto) 2.4, Absolute Lymphs (auto) 1.79, Nucleated RBC % 0, ESR 3, Sodium 140, Potassium 3.6, Chloride 113 H, Carbon Dioxide 25.0, Anion Gap 2 L, BUN 6 L, Creatinine 0.72, Estim Creat Clear Calc 116.14, Est GFR (MDRD) Af Amer 119, Est GFR (MDRD) Non-Af 99, BUN/Creatinine Ratio 8.3 L, Glucose 79, Calcium 8.0 L, Total Bilirubin 0.60, AST 16, ALT 15, Alkaline Phosphatase 39 L, C-React Prot Ext Range 28.70 H, Total Protein 5.7 L, Albumin 3.1 L, Globulin 2.6, Albumin/Globulin Ratio 1.2, Amylase 33, Lipase 24 Radiography Diagnostic Testing: Radiology Impression Gallbladder Ultrasound 12/25/23 10:19 IMPRESSION: Fatty infiltration of the liver. Positive Abbasi''s sign. No gallstone seen on this examination. Electronically Signed: Sukhjinder Saunders MD at 12:17 EDT , Hepatobiliary Scan Nuclear Medicine 12/25/23 10:29 IMPRESSION: 1. ABNORMAL 99m Tc Mebrofenin hepatobiliary imaging examination with Cholecystokinin. A. A gallbladder ejection fraction calculated to be less than 35% following the administration of Cholecystokinin is consistent with the presence of functional hepatobiliary disease (gallbladder and/or sphincter of Oddi dyskinesia) and/or organic hepatobiliary disease (chronic acalculous cholecystitis and/or cystic duct syndrome) in patients with intermediate to high pretest likelihoods of hepatobiliary illness. (Analilia Rich et al, Journal of Nuclear Medicine 32:1695, 1991). Electronically Signed: Francisco Mercedes DO at 14:18 EDT , Physical Exam GI GI Narrative: Persistent tenderness right upper quadrant. Diminished bowel sounds Assessment & Plan Assessment/Plan (1) Biliary dyskinesia: PLAN: I have discussed with the patient and her that her presentation is confusing as she is now on Dilaudid and her pain requirements seem to be out of proportion to imaging and laboratory findings. The only definitive abnormal testing we have is an abnormal hepatobiliary scan with an ejection fraction of 2%. I have been very straightforward with the patient and that this could be a false positive secondary to her fasting and narcotic administration. This is the only abnormal direct finding that we have and she is complaining of pain and is tender in the right upper quadrant. While Dr. Alexander continues to assist with evaluation I have proposed for the patient a laparoscopic cholecystectomy with selective cholangiograms. She is very much aware of the technique, benefit, risk, alternatives. No guarantees of success have been offered. She has had an opportunity to ask and have questions answered. We will proceed today as OR timing permits. Navid Pepe M.D., F.A.C.S.
[2023-12-26] MEDS: Ondansetron 4 MG/2 ML Vial IV ×2 (06:28→20:16)
[2023-12-26 07:05] LABS: Absolute Lymphocyte Count 1.67 X10^3/uL (0.83-4.51); Absolute Neutrophil Count 2.7 X10^3/uL (2.0-7.7); Basophil# 0.01 X10^3/uL; Basophil% 0.2 % (0-1); Eosinophil# 0.18 X10^3/uL; Eosinophils% 3.6 % (0-5); Hematocrit 32.6 % (37-47); Hemoglobin 11.3 g/dL (12.0-15.0); Lymphocyte # 1.67 X10^3/ul (0.83-4.51); Lymphocyte % 33.4 % (19-41); Mean Corp Hgb Conc 34.7 g/dL (32-36); Mean Corpuscular Hgb 31.7 pg (27.0-32.0); Mean Corpuscular Volume 91.3 fL (81-99); Mean Platelet Vol. 9.4 fl (6.2-12.0); Monocyte# 0.41 X10^3/uL; Monocyte% 8.2 % (0-10); NRBC Flagged by Analyzer 0 % (0-5); Neutrophil # 2.72 X10^3/uL (2.7-7.7); Neutrophil % 54.4 % (47-70); Platelet Count 190 K/mm3 (150-450); RBC Distribution Width CV 11.3 % (11.6-14.6); RBC Distribution Width SD 38.2 fl (35.1-43.9); Red Blood Count 3.57 M/mm3 (4.2-5.4)
[2023-12-26 07:19] LABS: International Normalized Ratio 1.2; Prothrombin Time (Protime)PT. 15.1 SECONDS (11.7-14.9)
[2023-12-26 07:20] LABS: Partial Thromboplast Time 29.4 Seconds (24.1-36.2)
[2023-12-26 07:32] LABS: Anion Gap 5 (5-15); BUN 3 mg/dL (7-18); BUN/Creat Ratio 4.1 RATIO (10-20); Calcium,Total 8.5 mg/dL (8.5-10.1); Chloride 110 mmol/L (98-107); Creatinine, Serum 0.73 mg/dL (0.55-1.02); EST Glomerular Filtration Rate 97 mL/min (>60); Est Glom Filt Rate - Afr Amer 118 mL/min (>60); Estimated Creatinine Clearance 114.55 ml/min; Glucose 77 mg/dL (74-106); Potassium 3.3 mmol/L (3.5-5.1); Sodium Level 139 mmol/L (136-145)
[2023-12-26 08:43] LABS: Internal QC Validated? YES +Cl - CLEAR BKGD; Pregnancy, Urine Negative Negative
[2023-12-26] MEDS: Potassium Chloride Oral Tablet 20 MEQ 40 MEQ PO (09:46)
[2023-12-26] MEDS: Pantoprazole Sodium 40 MG in 0.9% Normal Saline (100mL MB+) 100 ML 330 MG IV (09:51)
--- NOTE | 2023-12-26 10:05 | PN_ITS ---
Subjective Subjective Patient seen and examined. Her was by her bedside. She still complained of the right upper quadrant pain. She denied any nausea, vomiting or any other symptoms. Review of systems is otherwise negative. Objective Data Objective Data Vital Signs: Vital Signs Temp Pulse Resp BP Pulse Ox O2 Del Method 98.2 F 71 16 141/76 H 97 Room Air 12/26/23 08:35 12/26/23 08:35 12/26/23 08:35 12/26/23 08:35 12/26/23 08:35 12/26/23 08:35 Oxygen Delivery Method Room Air Weight: 157 lb 10.088 oz Body Mass Index (BMI) 23.3 Intake & Output: Intake and Output for Last 24 Hours 12/24/23 12/25/23 12/26/23 23:59 23:59 23:59 Intake Total 3229.5 / 3229.5 3037.5 / 3917.5 2827.5 / 2827.5 Output Total 0 / 0 Balance 3229.5 / 3229.5 3037.5 / 3917.5 2827.5 / 2827.5 Lab / Micro Data 12/26/23 06:25 12/26/23 06:25 Labs: Laboratory Results - last 24 hr 12/25/23 07:56: ESR 3, C-React Prot Ext Range 28.70 H, Amylase 33, Lipase 24 12/26/23 06:25: WBC 5.0, RBC 3.57 L, Hgb 11.3 L, Hct 32.6 L, MCV 91.3, MCH 31.7, MCHC 34.7, RDW Std Deviation 38.2, RDW Coeff of Donn 11.3 L, Plt Count 190, MPV 9.4, Immature Gran % (Auto) 0.200, Neut % (Auto) 54.4, Lymph % (Auto) 33.4, Webster % (Auto) 8.2, Eos % (Auto) 3.6, Baso % (Auto) 0.2, Absolute Neuts (auto) 2.7, Absolute Lymphs (auto) 1.67, Nucleated RBC % 0, PT 15.1 H, INR 1.2, APTT 29.4, Sodium 139, Potassium 3.3 L, Chloride 110 H, Carbon Dioxide 24.0, Anion Gap 5, B UN 3 L, Creatinine 0.73, Estim Creat Clear Calc 114.55, Est GFR (MDRD) Af Amer 118, Est GFR (MDRD) Non-Af 97, BUN/Creatinine Ratio 4.1 L, Glucose 77, Calcium 8.5 12/26/23 08:06: Urine Test Negative Radiography Diagnostic Testing: Radiology Impression Gallbladder Ultrasound 12/25/23 10:19 IMPRESSION: Fatty infiltration of the liver. Positive Abbasi''s sign. No gallstone seen on this examination. Electronically Signed: Sukhjinder Saunders MD at 12:17 EDT , Hepatobiliary Scan Nuclear Medicine 12/25/23 10:29 IMPRESSION: 1. ABNORMAL 99m Tc Mebrofenin hepatobiliary imaging examination with Cholecystokinin. A. A gallbladder ejection fraction calculated to be less than 35% following the administration of Cholecystokinin is consistent with the presence of functional hepatobiliary disease (gallbladder and/or sphincter of Oddi dyskinesia) and/or organic hepatobiliary disease (chronic acalculous cholecystitis and/or cystic duct syndrome) in patients with intermediate to high pretest likelihoods of hepatobiliary illness. (Analilia Rich et al, Journal of Nuclear Medicine 32:1695, 1991). Electronically Signed: Francisco Mercedes DO at 14:18 EDT , Physical Exam Const alert, oriented x3, average body habitus, healthy appearing and well nourished Constitutional Narrative: in moderate distress due to abdominal pain General Appearance: cooperative and well developed HEENT normocephalic, head/scalp atraumatic, hearing grossly normal bilaterally, moist oral mucous membranes and oropharynx normal Eyes PERRL and EOMs intact bilaterally Neck no lymphadenopathy and supple Lymph Lymphatic: no lymphadenopathy noted and no lymphedema noted Resp normal respiratory effort, normal air movement, no retractions, no use of accessory muscles and clear to auscultation bilaterally Cardio regular rate, regular rhythm, S1 normal heart sound, S2 normal heart sound and no murmurs GI soft to palpation GI Narrative: moderate RUQ tenderness, no guarding or rebound tenderness. Abbasi's sign is positive Extremity normal to inspection, full ROM, normal capillary refill, no clubbing, cyanosis or edema and no calf tenderness General Extremity: no tenderness to palpation of joints or extremities Skin General Skin Exam: no breakdown Neuro oriented x3, CN's II-XII intact bilaterally, moves all extremities, no focal motor deficits, no sensory deficits noted and deep tendon reflexes 2+ bilaterally Sensorium / Orientation: awake, alert, oriented to person, oriented to place and oriented to time Speech: speech normal Motor Exam: strength 5/5 throughout and general weakness Psych thought process normal and cooperative Psych Narrative: Patient is tearful and in obvious distress due to abdominal pain Appearance: appropriate Mood & Affect: anxious Assessment & Plan Assessment/Plan (1) Intractable nausea and vomiting: (2) Duodenal mass: (3) Celiac disease: (4) Ileocolitis: (5) Hyperbilirubinemia: PLAN: Plan #Intractable abdominal pain * CT abdomen and pelvis done at outside hospital showed well circumscribed heterogenous enhancing lesion ~ 2.3cm x 2cm within the pylorus/proximal duodenum; she also had multifocal small bowl and colonic wall thickening with surrounding inflammation and suspected ileocolitis. * She was in [facility], about 2 months ago. She said she only drank bottled water whilst there and did not have any GI complaints. * She also does have a history of celiac disease. She has mild hepatomegaly on palpation, though CT abdomen did not make any mention of enlarged liver * had EGD which showed mild duodenitis but did not show any mass * Repeat CT abdomen/pelvis done showed colitis of the ascending and transverse colon as well as small dependent, layering gallstones * gallbladder USG showed fatty infiltration of the liver with positive Abbasi sign and no gallstones seen. HIDA scan showed evidence of gallbladder and all sphincter of Oddi dyskinesia * IV zofran and IM phenergan for break through vomiting * hydrate with IVF NS * IV morphine prn for pain. * for laparoscopic cholecystectomy today * #Elevated liver enzymes * liver enzymes have normalised * repeat CT showed hepatic steatosis. * will monitor. * #Hypokalemia: K is .3. Will replace and trend. #History of celiac disease * States she was diagnosed with celiac disease when she was and ate a bagel. She has not had any flareups since then. * She is not sure if she has had formal diagnosis for celiac disease. * Will benefit from follow-up with gastroenterology on outpatient basis. * #History of hyperemesis gravidarum: urine test was negative. has IUD in place DVT prophylaxis; SCDs Charges/Coding Visit Charges Inpatient E&M: 53719 Subs Hosp L2
[2023-12-26 10:41] LABS: AST(SGOT) 22 U/L (15-37); Alanine Aminotransfer ALT/SGPT 20 U/L (13-56); Albumin, Serum 3.3 g/dL (3.2-5.0); Alkaline Phosphatase 41 U/L (45-117); Bilirubin, Direct 0.23 mg/dL (0.00-0.30); Globulin 2.5 g/dL (2.2-4.2); Protein, Total 5.8 g/dL (6.4-8.2)
[2023-12-26] MEDS: Lactated Ringers 1,000 ML 15 ML IV (12:15)
--- NOTE | 2023-12-26 14:40 | PRE.ANES_ITS ---
ASA Classification* ASA Classification ASA Classification: 2 Assessment & Plan Anesthesia* Anesthesia Assessment Anesthesia Assessment: Discussed sedation and/or anesthesia options, risks, benefits, and alternatives with patient/parents/legal guardian/POA. Questions invited. The patient/parents/legal guardian/POA seems to understand and agrees to proceed with anesthesia plan. Reviewed the physical assessment, medical history, allergy history and patient home medications list prior to surgery/procedure/anesthetic and documented any changes. Performed airway and anesthesia risk assessments. 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 When Was Last Pacemaker Check QUESTION #4 FULL TEXT: You/Your Family Experience fever (hyperthermia) with Anesthesia Last Oral Intake Last Oral intake: Last Oral Intake NPO since 00:00 12/26/23 13:43 Meds taken in AM with sips of Yes 12/26/23 13:43 water? Meds patient instructed to kdur 12/26/23 13:43 take am of surgery PONV PONV - multimedia authoring specialist: PONV - multimedia authoring specialist Female HX of Motion Sickness HX of N/V After Surgery Non-Smoker Duration of Surgery greater than 60 minutes Number of Risk Factors PONV Score Height & Weight Height & Weight: Anesthesia: Height & Weight Height 1.75 m 12/26/23 14:31 Weight: 71.5 kg 12/26/23 14:31 Body Mass Index (BMI) 23.3 12/26/23 13:43 Respiratory Assessment Respiratory Assessment - multimedia authoring specialist: Respiratory Tract Infection Hx - multimedia authoring specialist Hx Respiratory Tract Infection No 12/23/23 22:01 STOP Sleep Apnea STOP Sleep Apnea - multimedia authoring specialist: STOP Sleep Apnea - multimedia authoring specialist Hx Hypertension No 12/23/23 19:28 Hx Sleep Apnea No 12/24/23 13:18 CPAP BIPAP Do you snore loudly (louder No 12/23/23 19:28 than talking or can be heard Do you often feel tired/ Yes 12/23/23 19:28 fatigued/ sleepy during daytime? Has anyone observed you stop No 12/23/23 19:28 breathing during sleep? STOP Results Negative 12/23/23 19:28 QUESTION #5 FULL TEXT : Do you snore loudly (louder than talking or can be heard through closed doors)? 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 Specify any problems Hx of Preganancy in last 3 No 12/23/23 19:28 Months Nurse Filling Out Transfusion EVIZZO 12/23/23 19:28 & Questions: Date: 12/23/23 12/23/23 19:28 Time: 19:39 12/23/23 19:28 Patient unable to answer at this time (ie. confused, unrespo /Reproduction History /Reproductive History - multimedia authoring specialist: /Reproductive Hx- multimedia authoring specialist Hx Now No 12/23/23 22:01 Gestational Age (in weeks): EDC: Hx Hx Para Hx Section SAB No 12/23/23 22:01 Active Medications Active Medications: Current Medications Generic Name Dose Route Start Last Admin Trade Name Freq PRN Reason Stop Dose Admin Docusate Sodium 100 mg 12/25/23 22:00 12/26/23 11:53 Docusate Sodium 100 Mg Capsule PO Not Given BID JAMEL Hydromorphone HCl 0.5 mg 12/25/23 04:34 12/26/23 10:52 Hydromorphone 0.5 Mg/0.5 Ml Syringe IV 0.5 mg Q3H PRN PRN Administration Pain Score 6-10 Sodium Chloride 1,000 mls @ 150 mls/hr 12/23/23 19:20 12/26/23 08:46 IV 150 mls/hr .Q6H40M JAMEL Administration Pantoprazole Sodium 40 mg/ 110 mls @ 330 mls/hr 12/23/23 19:25 12/26/23 10:15 Sodium Chloride IV Infused Q24 JAMEL Infusion Sodium Chloride 250 mls @ 15 mls/hr 12/23/23 19:29 IV .[id number] PRN Additional IVPB Infusion Sodium Chloride 250 mls @ 15 mls/hr 12/23/23 19:29 IV .[id number] PRN Saline Flush Lactated Ringer's 1,000 mls @ 15 mls/hr 12/24/23 12:15 12/26/23 12:15 IV 15 mls/hr .Q48H JAMEL Administration Morphine Sulfate 2 mg 12/23/23 19:17 12/25/23 19:47 Morphine 2 Mg/Ml Syringe IV 2 mg Q4H PRN PRN Administration Pain Score 6-10 Nutritional Formula (Lactose Free) 120 ml 12/24/23 10:00 12/26/23 11:54 Ensure Plus High Protein 120 Ml Liquid PO Not Given 4X/DAY JAMEL Ondansetron HCl 4 mg 12/23/23 19:17 12/26/23 06:28 Ondansetron 4 Mg/2 Ml Vial IV 4 mg Q8H PRN PRN Administration NAUSEA/VOMITING Promethazine HCl 25 mg 12/23/23 19:17 12/23/23 23:19 Promethazine 25 Mg/Ml Syringe IM 25 mg Q6H PRN PRN Administration Breakthrough nausea/vomiting Scopolamine HBr 1 patch 12/23/23 19:30 12/23/23 20:08 Scopolamine 1mg/72hr Patch TD 1 patch Q3D@2200 JAMEL Administration Sodium Chloride 10 - 40 ml 12/23/23 19:29 12/25/23 07:29 0.9% Saline Lock 10 Ml Syringe IV 10 ml UD PRN Administration SALINE FLUSH Anesthesia Focused Assessment* Temperature: 98.5 F Pulse Rate: 70 Blood Pressure: 138/84 Respiratory Rate: 16 Pulse Ox: 97 Airway Assessment Mouth opens (cm): 3 Mallampati Score: II Focused Labs Anesthesia Preop lab: CBC WBC 5.0 K/mm3 (4.4-11.0) 12/26/23 06:25 RBC 3.57 M/mm3 (4.2-5.4) L 12/26/23 06:25 Hgb 11.3 g/dL (12.0-15.0) L 12/26/23 06:25 Hct 32.6 % (37-47) L 12/26/23 06:25 Plt Count 190 K/mm3 (150-450) 12/26/23 06:25 CHEMISTRY Potassium 3.3 mmol/L (3.5-5.1) L 12/26/23 06:25 Sodium 139 mmol/L (136-145) 12/26/23 06:25 Magnesium 2.0 mg/dL (1.6-2.6) 12/24/23 05:03 Phosphorus 2.5 mg/dL (2.5-4.9) 12/24/23 05:03 BUN 3 mg/dL (7-18) L 12/26/23 06:25 Creatinine 0.73 mg/dL (0.55-1.02) 12/26/23 06:25 Glucose 77 mg/dL (74-106) 12/26/23 06:25 TSH 0.90 uIU/mL (0.358-3.74) 12/24/23 05:03 COAG PT 15.1 SECONDS (11.7-14.9) H 12/26/23 06:25 Urine Test Negative Negative 12/26/23 08:06 Review of Systems (Anesthesia) ROS Narrative System reviewed and no additional complaints, except as documented. PFSH Home Medications ?Medication ?Instructions ?Recorded ?Last Taken ?Type multivitamin 1 tab PO DAILY 12/23/23 Unknown History Allergy/AdvReac Type Severity Reaction Status Date / Time amoxicillin (Amoxicillin) Allergy Rash Verified 04/22/18 13:43 hydrocodone bitartrate (From AdvReac Vomiting Verified 04/22/18 13:43 Vicodin) Surgical History History of adenoidectomy History of tonsillectomy Social History Smoking Status: Never smoker
--- NOTE | 2023-12-26 15:40 | GALL_PTH ---
PATIENT: JESSICA BEACH LOC: 3 U#:[id number] AGE/SX: 33/F ROOM: MS308 RE12/23/[address]: Dr. Gaudalupe Orr MD : 1990 BED: 1 DIS: 12/27/2023 SPEC #: [id number] RECD: 12/27/23 09:58 STATUS: NED BARROS #: [id number] SEEMA: 12/26/23 15:[address]: Navid Pepe DEPT: SURGICAL PATHOLOGY RECD BY: Malorie Reynaga ENTERED: 12/27/23 10:47 SP TYPE: GALLBLADDE OTHR DR: MD Dr. Guadalupe Marcano MD Dr. Robert D Cebul, MD Dr. Rahsaan Friend [facility] PATI Patino Tissues: Gallbladder, NOS Procedures: Surgery Specimen Level III Comments: @ Ordering doctor for SUIII edited from to @ prudencio SILVA at 12/27/23 1226 @ Submitting doctor edited from to @ prudencio SILVA at 12/27/23 1226 HEADER OPERATION: Laparoscopic, cholecystectomy with IOC PRE-OP DIAGNOSIS: Ileocolitis, hyperbilirubinemia, intractable nausea and vomiting, intractable epigastric abdominal pain TISSUE SUBMITTED: Gallbladder MICROSCOPIC DIAGNOSIS Gallbladder, cholecystectomy: Chronic cholecystitis. /mr 12/28/2023 MICROSCOPIC DESCRIPTION Slides are reviewed. GROSS DESCRIPTION Received is one container labeled with the patient's name and designated gallbladder. The specimen consists of a gallbladder measuring 11.5 cm in length and up to 4.0 cm in diameter. The external surface is pink-solorio, smooth and glistening for the most part. Focally it is granular, hemorrhagic and contains cautery artifact. The gallbladder contains green-yellow mucoid bile and no stones are identified in the gallbladder or in the container. The mucosa is bile-stained and without any mass lesions. The gallbladder wall measures up to 0.2 cm in thickness. Toe Sewer sections from the gallbladder and the cystic duct are submitted in one cassette. / SJ:mr 12/27/2023 TC:3 CPT: 34614
[2023-12-26] MEDS: Clindamycin 900 MG/50 ML BAG 75 MG IV (15:54)
--- NOTE | 2023-12-26 15:57 | DCINST_ITS ---
Discharge Instructions Procedure General Surgery Diet Discharge Diet: Light diet - advance as tolerated (if you have questions about your diet instructions, please talk to you doctor.) Activity Discharge Activity: May Not Drive (for 3-5 days or while taking narcotic pain medicine.) May shower in (days): 1 Lifting Restrictions: 10 pounds Dressing / Incision Call your doctor if your incision/area has: Continuous Slow Oozing, Sudden Increased Bleeding, Increased Pain/ Swelling, Increased Redness and Foul Smelling Discharge Call your doctor if you observe: Fever of 101 or Higher Suture Line Care: Avoid Pulling/Pushing and Avoid Pinching/Bending Additional Dressing/Incision Instructions:: Change or remove dressing in 4 days. Leave steri-strips in place for 1 week. Follow Up Care Please Follow Up With: Navid Pepe MD When: Call [phone] to make an appointment to be seen in about 10 days. Test Results: Test results from this visit will be discussed in further detail at your follow- up appointment, if applicable. Discharge Plan Admission Admit Date/Time: 12/23/23 19:17 Primary Reason for Your Visit: Acalculous cholecystitis Attending Provider: Guadalupe Orr Primary Care Provider: Davon Almanza Consulting Providers: Marshall Sanchez; Michael Alexander; Navid Pepe Discharge Orders/Prescriptions Prescriptions: New oxycodone-acetaminophen [Percocet] 5-325 mg tablet 1 tab PO Q6H PRN (Reason: pain) 3 Days Qty: 10 0RF Continued multivitamin Tablet 1 tab PO DAILY Referrals / Follow Up: Davon Almanza PA [Primary Care Provider] - Disposition Disposition (needs filled in before D/C Order can be placed): Home, Self Care
--- NOTE | 2023-12-26 16:00 | RAD_ITS ---
HISTORY: PAIN COMPARISON: Nuclear medicine hepatobiliary scan December 25, 2023 TECHNIQUE: A total of 127 fluoroscopic images were saved in the single series without a radiologist present. FINDINGS: Images demonstrate percutaneous cannulization of the remaining cystic duct, with passage of contrast distally into the duodenum and proximal into the hepatic ducts Total fluoroscopy time: 18.3 seconds Cumulative dose: 10.56 mGy RAD/Cholangiogram/ O R,Initial IMPRESSION: Fluoroscopic assistance for intraoperative cholangiogram. Please see operative report for additional information. Electronically Signed: Robe Oneill MD at 5:05 EDT ,
[2023-12-26] MEDS: Bupivacaine Mpf 0.5% 30 ML VIAL (16:16)
--- NOTE | 2023-12-26 17:21 | PCM.OPRPT ---
Report of Operation Date of Procedure: 12/26/23 Pre-Operative Diagnosis: Biliary dyskinesia Post-Operative Diagnosis: Biliary dyskinesia with chronic cholecystitis Surgery/Procedure Performed:: Laparoscopic ostectomy with cholangiograms Description of Surgical Findings:: Timeout informed consent was obtained. 33-year-old female was taken to the operating placed on the table underwent general tracheal ovation esthesia. The abdomen sterilely prepped and draped. Clindamycin 9 mg were given intravenously. 0.5% Marcaine was used as local anesthetic. Throughout the procedure a total of 30 cc was used. Skin sites were Frida size. A vertical infraumbilical incision was created holding sutures of 0 Vicryl placed vaginal inserted saline drop test performed the abdomen was insufflated with CO2 to a pressure of 10 mmHg pressure 10 mm trocar was inserted. 10 Ventralex cath inserted. No evidence of any trocar injuries. Liver appeared to have normal texture to it stomach appeared to be just mildly inflated the right colon appeared to be completely normal the gallbladder appeared to have adhesions of omentum to it and was edematous. This is consistent with active gallbladder disease. Blunt dissection was instituted at the infundibulum until clearly the cystic duct and cystic artery were identified. In fact there was an anterior and posterior branch of the cystic artery and these were dissected out separately. Critical view was achieved. 2 Hem-o-mak clips were placed proximally on the cystic arteries and 1 distally prior to transecting it. A Hemoclip was placed on the cystic duct incision made in the cystic duct and of interest despite manipulation there is no bile return from the common bile duct. The cholangiogram catheter was inserted secured with a Hem-o-mak clip fluoroscopically controlled cholangiograms were obtained demonstrating very small cystic duct there was nice feeling into the common bile duct flow into the small bowel with some suspected spasm of the distal common bile duct there was normal intrahepatic ductal filling. The cholangiogram catheter was removed and 2 additional Hem-o-mak clips were placed on the cystic duct stump prior to transecting it. The gallbladder was dissected free from the liver bed. Where needed I did place a couple Hem-o-mak clips to assure no cystic duct backflow. The gallbladder was noted to actually be quite inflamed and adherent to the liver parenchyma and tedious dissection was required to free up. The gallbladder was placed in a retrieval bag. The liver bed was treated with electrocautery and then to assure hemostasis a piece of fibrillar was placed. Hemostasis was nicely intact. The right upper quadrant irrigated and aspirated free of excess fluid. The gallbladder space and retrieval bag and exited the umbilicus. The abdomen was allowed to deflated the CO2. The fascia at the umbilicus was approximated with interrupted 0 Vicryl [id number] suture. Skin edges approximated opted for Monocryl subdermal sutures. Steri-Strips Telfa OpSite dressings applied. Sponge and instrument and needle counts were reported to the surgeon to be correct. Specimen gallbladder. Drains none. Blood loss minimal. The patient was taken to the operating room in satisfactory addition with apparent complication Navid Pepe M.D., F.A.C.S. Surgeon: Navid Pepe
--- NOTE | 2023-12-26 17:40 | PCM.POST.ANE ---
Anesthesia: Postop Eval I Current Vital Signs Temperature: 97.1 F Pulse Rate: 76 Blood Pressure: 160/102 Respiratory Rate: 16 Pulse Ox: 100 Oxygen Delivery Method: Room Air Assessment Airway patent: Yes Spontaneous unlabored respirations: Yes Mental status: Awake nausea: No Vomiting: No Anesthesia Complication: No Fluid Hydration Crystalloid volume administer (ml): 1,200 Colloids volume administered (ml): 0 Blood Product volume administered (ml): 0 Total IV fluid infused: 1,200 Progress Note Anesthesia document: Postop Eval 1 completed: Yes
--- NOTE | 2023-12-26 17:51 | EX.PCM.PN.GI ---
Subjective Subjective Patient is still having abdominal pain. She did gets home preop antibiotics. The plan for her is to get cholecystectomy today. Objective Data Objective Data Vital Signs: Vital Signs Temp Pulse Resp BP Pulse Ox O2 Del Method 97.1 F L 76 16 160/102 H 100 Room Air 12/26/23 17:41 12/26/23 17:41 12/26/23 17:41 12/26/23 17:41 12/26/23 17:41 12/26/23 17:41 Oxygen Delivery Method Room Air Weight: 157 lb 10.088 oz Body Mass Index (BMI) 23.3 Intake & Output: Intake and Output for Last 24 Hours 12/24/23 12/25/23 12/26/23 23:59 23:59 23:59 Intake Total 3229.5 / 3229.5 3037.5 / 3917.5 2987.5 / 2987.5 Output Total 0 / 0 Balance 3229.5 / 3229.5 3037.5 / 3917.5 2987.5 / 2987.5 Lab / Micro Data 12/26/23 06:25 12/26/23 06:25 Labs: Laboratory Results - last 24 hr 12/25/23 07:56: Amylase 33, Lipase 24 12/26/23 06:25: WBC 5.0, RBC 3.57 L, Hgb 11.3 L, Hct 32.6 L, MCV 91.3, MCH 31.7, MCHC 34.7, RDW Std Deviation 38.2, RDW Coeff of Donn 11.3 L, Plt Count 190, MPV 9.4, Immature Gran % (Auto) 0.200, Neut % (Auto) 54.4, Lymph % (Auto) 33.4, [place] % (Auto) 8.2, Eos % (Auto) 3.6, Baso % (Auto) 0.2, Absolute Neuts (auto) 2.7, Absolute Lymphs (auto) 1.67, Nucleated RBC % 0, PT 15.1 H, INR 1.2, APTT 29.4, Sodium 139, Potassium 3.3 L, Chloride 110 H, Carbon Dioxide 24.0, Anion Gap 5, BUN 3 L, Creatinine 0.73, Estim Creat Clear Calc 114.55, Est GFR (MDRD) Af Amer 118, Est GFR (MDRD) Non-Af 97, BUN/Creatinine Ratio 4.1 L, Glucose 77, Calcium 8.5, Total Bilirubin 0.80, Direct Bilirubin 0.23, AST 22, ALT 20, Alkaline Phosphatase 41 L, Total Protein 5.8 L, Albumin 3.3, Globulin 2.5 12/26/23 08:06: Urine Test Negative Radiography Diagnostic Testing: Radiology Impression Hepatobiliary Scan Nuclear Medicine 12/25/23 10:29 IMPRESSION: 1. ABNORMAL 99m Tc Mebrofenin hepatobiliary imaging examination with Cholecystokinin. A. A gallbladder ejection fraction calculated to be less than 35% following the administration of Cholecystokinin is consistent with the presence of functional hepatobiliary disease (gallbladder and/or sphincter of Oddi dyskinesia) and/or organic hepatobiliary disease (chronic acalculous cholecystitis and/or cystic duct syndrome) in patients with intermediate to high pretest likelihoods of hepatobiliary illness. (Analilia Rich et al, Journal of Nuclear Medicine 32:1695, 1990). Electronically Signed: Francisco Mercedes DO at 14:18 EDT , Physical Exam Const alert, oriented x3, average body habitus, healthy appearing and well nourished Constitutional Narrative: in moderate distress due to abdominal pain General Appearance: cooperative and well developed HEENT normocephalic, head/scalp atraumatic, hearing grossly normal bilaterally, moist oral mucous membranes and oropharynx normal Eyes PERRL and EOMs intact bilaterally Neck no lymphadenopathy and supple Lymph Lymphatic: no lymphadenopathy noted and no lymphedema noted Resp normal respiratory effort, normal air movement, no retractions, no use of accessory muscles and clear to auscultation bilaterally Cardio regular rate, regular rhythm, S1 normal heart sound, S2 normal heart sound and no murmurs GI soft to palpation GI Narrative: moderate RUQ tenderness, no guarding or rebound tenderness. Abbasi's sign is positive Extremity normal to inspection, full ROM, normal capillary refill, no clubbing, cyanosis or edema and no calf tenderness General Extremity: no tenderness to palpation of joints or extremities Skin General Skin Exam: no breakdown Neuro oriented x3, CN's II-XII intact bilaterally, moves all extremities, no focal motor deficits, no sensory deficits noted and deep tendon reflexes 2+ bilaterally Sensorium / Orientation: awake, alert, oriented to person, oriented to place and oriented to time Speech: speech normal Motor Exam: strength 5/5 throughout and general weakness Psych thought process normal and cooperative Psych Narrative: Patient is tearful and in obvious distress due to abdominal pain Appearance: appropriate Mood & Affect: anxious Assessment & Plan Assessment/Plan (1) Duodenal mass: (2) Ileocolitis: (3) Hyperbilirubinemia: (4) Intractable nausea and vomiting: (5) Intractable epigastric abdominal pain: (6) Celiac disease: PLAN: Plan 33-year-old with intractable abdominal pain of unsure origin at this time. CT scan of the abdomen and pelvis done at [facility] revealed a well-circumscribed heterogenous enhancing lesion ~2.3 cm x ~2 cm within the pylorus/proximal duodenum with associated diffuse multifocal small bowel and colonic wall thickening with subtle surrounding inflammation and suspected ileocolitis with mild hyperbilirubinemia of 1.7 mg/dL present on admission in the setting of known celiac disease and recent trip to [place]. She underwent an upper endoscopy and there was no sign of any acute pathology that would elicited severe pain. Patient is currently being evaluated for cholecystectomy. She underwent a HIDA scan which showed low ejection fraction of 2%. I thought possibly that she could be experiencing some intermittent ischemia so CT angiography was ordered but did not reveal any acute pathology of the small bowel. It did reveal some acute pathology with inflammation in the colon. Patient had all questions answered. 12/25-patient is still in a lot of abdominal pain. The plan is for her to undergo cholecystectomy today. Hopefully she can get some relief. Await report cholecystectomy. Continue n.p.o. and pain control. Charges/Coding Visit Charges Inpatient E&M: 14427 [facility] Hosp L3
--- NOTE | 2023-12-26 18:39 | POSTOPAN2_ITS ---
Anesthesia Postop Eval I Sum Postop Eval Completion status Anesthesia document: Postop Eval 1 completed: Yes Anesthesia Postop Eval I Summary Anesthesia Postop Eval I Summary: Anesthesia Postop Eval I: Assessment Summary Airway patent Yes 12/26/23 17:41 AUDITING [email or web address] Spontaneous unlabored Yes 12/26/23 17:41 AUDITING CLERK.CSIR respirations Mental status Awake 12/26/23 17:41 AUDITING CLERK.CSIR nausea No 12/26/23 17:41 AUDITING CLERK.CSIR Vomiting No 12/26/23 17:41 AUDITING CLERK.CSIR Anesthesia Postop Eval I: Fluid Summary Crystalloid volume administer 1,200 12/26/23 17:41 AUDITING CLERK.CSIR (ml) Colloids volume administered ( 0 12/26/23 17:41 AUDITING CLERK.CSIR ml) Blood Product volume 0 12/26/23 17:41 AUDITING CLERK.CSIR administered (ml) Total IV fluid infused 1,200 12/26/23 17:41 AUDITING CLERK.CSIR Anesthesia Postop Eval I: Summary Notes Anesthesia Complication No 12/26/23 17:41 AUDITING CLERK.CSIR Anesthesia Complication Comment: Post-operative progress note Anesthesia: Postop Eval II Evaluation Mental status: Awake and Calm Pain Level: 4 nausea: Yes Vomiting: No Progress Note Post-operative progress note: Patient currently receiving nausea medication and pain medication from LEGAL DOCUMENT ASSISTANT. Complications Anesthesia Complication: No
--- NOTE | 2023-12-26 18:39 | PCM.POSTANE2 ---
Anesthesia Postop Eval I Sum Postop Eval Completion status Anesthesia document: Postop Eval 1 completed: Yes Anesthesia Postop Eval I Summary Anesthesia Postop Eval I Summary: Anesthesia Postop Eval I: Assessment Summary Airway patent Yes 12/26/23 17:41 DATA COMMUNICATIONS TECHNICIAN.CSIR Spontaneous unlabored Yes 12/26/23 17:41 DATA COMMUNICATIONS TECHNICIAN.CSIR respirations Mental status Awake 12/26/23 17:41 DATA COMMUNICATIONS TECHNICIAN.CSIR nausea No 12/26/23 17:41 DATA COMMUNICATIONS TECHNICIAN.CSIR Vomiting No 12/26/23 17:41 DATA COMMUNICATIONS TECHNICIAN.CSIR Anesthesia Postop Eval I: Fluid Summary Crystalloid volume administer 1,200 12/26/23 17:41 DATA COMMUNICATIONS TECHNICIAN.CSIR (ml) Colloids volume administered ( 0 12/26/23 17:41 DATA COMMUNICATIONS TECHNICIAN.CSIR ml) Blood Product volume 0 12/26/23 17:41 DATA COMMUNICATIONS TECHNICIAN.CSIR administered (ml) Total IV fluid infused 1,200 12/26/23 17:41 DATA COMMUNICATIONS TECHNICIAN.CSIR Anesthesia Postop Eval I: Summary Notes Anesthesia Complication No 12/26/23 17:41 DATA COMMUNICATIONS TECHNICIAN.CSIR Anesthesia Complication Comment: Post-operative progress note Anesthesia: Postop Eval II Evaluation Mental status: Awake and Calm Pain Level: 4 nausea: Yes Vomiting: No Progress Note Post-operative progress note: Patient currently receiving nausea medication and pain medication from [employer]. Complications Anesthesia Complication: No
[2023-12-26] MEDS: Morphine 2 MG/ML Syringe IV (20:16)
[2023-12-27 00:07] VITALS: BP 143/93; PULSE 81; RESP 16; TEMP 36.5; O2SAT 98
[2023-12-27] MEDS: Morphine 2 MG/ML Syringe IV (00:16)
[2023-12-27] MEDS: Scopolamine 1mg/72hr Patch 1 PATCH TD (00:20)
[2023-12-27] MEDS: HYDROmorphone 0.5 MG/0.5 ML SYRINGE IV ×4 (01:19→12:21)
[2023-12-27] MEDS: Docusate Sodium 100 MG Capsule PO ×2 (01:21→08:49)
[2023-12-27] MEDS: SimETHICONE 80 MG Chewable Tablet PO (03:45)
[2023-12-27] MEDS: oxyCODONE 5 MG Tablet PO (03:50)
[2023-12-27 03:52] VITALS: BP 149/87; PULSE 76; RESP 16; TEMP 36.6; O2SAT 100
[2023-12-27] MEDS: 0.9% Normal Saline (1000mL) 1,000 ML 150 ML IV ×2 (03:56→10:39)
[2023-12-27 04:18] VITALS: BMI 23.3
--- NOTE | 2023-12-27 06:24 | PCM.PN.SRG ---
Subjective Subjective Patient is still generally sore. Feels like there is air underneath her diaphragm. The severe nausea has ceased. This severe pain has ceased. Objective Data Objective Data Vital Signs: Vital Signs Temp Pulse Resp BP Pulse Ox O2 Del Method O2 Flow Rate 97.8 F 76 16 149/87 H 100 Room Air 2 12/27/23 03:52 12/27/23 03:52 12/27/23 03:52 12/27/23 03:52 12/27/23 03:52 12/27/23 03:52 12/26/23 19:15 Oxygen Flow Rate (L/min) 2 Oxygen Delivery Method Room Air Weight: 157 lb 3.033 oz Body Mass Index (BMI) 23.3 Intake & Output: Intake and Output for Last 24 Hours 12/25/23 12/26/23 12/27/23 23:59 23:59 23:59 Intake Total 3037.5 / 3917.5 3987.5 / 4187.5 1370.25 / 1370.25 Balance 3037.5 / 3917.5 3987.5 / 4187.5 1370.25 / 1370.25 Lab / Micro Data 12/26/23 06:25 12/26/23 06:25 Labs: Laboratory Results - last 24 hr 12/26/23 06:25: WBC 5.0, RBC 3.57 L, Hgb 11.3 L, Hct 32.6 L, MCV 91.3, MCH 31.7, MCHC 34.7, RDW Std Deviation 38.2, RDW Coeff of Donn 11.3 L, Plt Count 190, MPV 9.4, Immature Gran % (Auto) 0.200, Neut % (Auto) 54.4, Lymph % (Auto) 33.4, [place] % (Auto) 8.2, Eos % (Auto) 3.6, Baso % (Auto) 0.2, Absolute Neuts (auto) 2.7, Absolute Lymphs (auto) 1.67, Nucleated RBC % 0, PT 15.1 H, INR 1.2, APTT 29.4, Sodium 139, Potassium 3.3 L, Chloride 110 H, Carbon Dioxide 24.0, Anion Gap 5, BUN 3 L, Creatinine 0.73, Estim Creat Clear Calc 114.55, Est GFR (MDRD) Af Amer 118, Est GFR (MDRD) Non-Af 97, BUN/Creatinine Ratio 4.1 L, Glucose 77, Calcium 8.5, Total Bilirubin 0.80, Direct Bilirubin 0.23, AST 22, ALT 20, Alkaline Phosphatase 41 L, Total Protein 5.8 L, Albumin 3.3, Globulin 2.5 12/26/23 08:06: Urine Test Negative Radiography Diagnostic Testing: Radiology Impression Cholangiogram 12/26/23 16:00 IMPRESSION: Fluoroscopic assistance for intraoperative cholangiogram. Please see operative report for additional information. Electronically Signed: Robe Oneill MD at 5:05 EDT , Physical Exam Resp normal respiratory effort GI GI Narrative: Soft, diminished bowel sounds, appropriate tenderness in the right upper quadrant, laparoscopic port sites clean and dry Assessment & Plan Assessment/Plan (1) Acalculous cholecystitis: PLAN: The patient's postintervention and hospital diagnoses now should be converted to a calculus cholecystitis. I visualized the ascending colon and saw no evidence of colitis. She is doing well postoperatively. Will initiate a diet I recommend to her discharge today. I discussed with her discharge instructions. I will provide her a very small amount of home-going narcotic pain medication as a secondary of [id number] medicine is ineffective. She has surgical follow-up scheduled. I appreciate the opportunity of assisting with her surgical care. Her final pathology is pending. Navid Pepe M.D., F.A.C.S.
--- NOTE | 2023-12-27 06:28 | PCM.DC.SUM ---
Providers Date of Admission: 12/23/23 Primary Care Physician: PATI Cedillo Consultations 12/23/23 19:17 Consult: Gastroenterology Routine Consulting Provider: Michael Dove Reason for Consult: Abdominal pain with history of celiac disease. EMERGENT Consult: No Notified: Yes Date Notified: 12/23/23 Time Notified: 19:19 Method of Notification: Text 12/25/23 09:36 Consult: General Surgery Routine Consulting Provider: Navid Pepe Reason for Consult: intractable abdominal pain EMERGENT Consult: No Notified: Yes Date Notified: 12/25/23 Time Notified: 09:36 Method of Notification: Informed by Dr Barker Reason For Visit: ABDOMINAL PAIN Diagnosis Discharge Diagnosis (1) Acalculous cholecystitis: Status: Acute Code(s): K81.9 - Cholecystitis, unspecified Plan: The patient's postintervention and hospital diagnoses now should be converted to a calculus cholecystitis. I visualized the ascending colon and saw no evidence of colitis. She is doing well postoperatively. Will initiate a diet I recommend to her discharge today. I discussed with her discharge instructions. I will provide her a very small amount of home-going narcotic pain medication as a secondary of [id number]-[id number] medicine is ineffective. She has surgical follow-up scheduled. I appreciate the opportunity of assisting with her surgical care. Her final pathology is pending. Navid Pepe M.D., F.A.C.S. Medications at Discharge Home Medications multivitamin 1 tab PO DAILY 12/23/23 oxycodone-acetaminophen 5 mg-325 mg tablet (Percocet) 1 tab PO Q6H PRN pain 3 days #10 tabs 12/27/23 Hospital Course Operations cholecystecomy (Laparoscopic cholecystectomy with cholangiograms) Summary of Care Provided Hospital Course: 33-year-old female who was transferred from [facility] because of severe abdominal pain nausea and vomiting. It was felt that she had ileocolitis and needed gastroenterology evaluation. She was evaluated by Dr. Abhay dove and she had an upper endoscopy looking for potential duodenal mass as well as source of the patient's pain. The upper endoscopy was not felt to be remarkable. Biopsy of the duodenum was unremarkable. Surgical consultation was requested. After evaluation the although the patient had CT imaging and a gallbladder ultrasound was obtained showing no stones. I requested a hepatobiliary scan and this demonstrated an ejection fraction of 2%. The patient did seem to involve having more right upper quadrant pain and so on December 26, 2023 I took to the operating and performed a laparoscopic cholecystectomy with cholangiograms. Clearly there was evidence of edema and inflammatory change of the gallbladder. Cholangiogram was normal. She tolerated the procedure well. Postoperative course was unremarkable. By December 27, 2023 she made sufficient coverage allow for discharge. In addition to her routine medicines a multivitamin she has been prescribed Percocet 10 tablets with no refills. She is encouraged however to utilize [id number] pain medicine as a preference. Weight / BMI Weight Weight: 157 lb 3.033 oz Body Mass Index (BMI) 23.3 ABG / Lab / Microbiology Data 12/26/23 06:25 12/26/23 06:25 Laboratory: Laboratory Results - last 24 hr 12/26/23 06:25: WBC 5.0, RBC 3.57 L, Hgb 11.3 L, Hct 32.6 L, MCV 91.3, MCH 31.7, MCHC 34.7, RDW Std Deviation 38.2, RDW Coeff of Donn 11.3 L, Plt Count 190, MPV 9.4, Immature Gran % (Auto) 0.200, Neut % (Auto) 54.4, Lymph % (Auto) 33.4, [place] % (Auto) 8.2, Eos % (Auto) 3.6, Baso % (Auto) 0.2, Absolute Neuts (auto) 2.7, Absolute Lymphs (auto) 1.67, Nucleated RBC % 0, PT 15.1 H, INR 1.2, APTT 29.4, Sodium 139, Potassium 3.3 L, Chloride 110 H, Carbon Dioxide 24.0, Anion Gap 5, BUN 3 L, Creatinine 0.73, Estim Creat Clear Calc 114.55, Est GFR (MDRD) Af Amer 118, Est GFR (MDRD) Non-Af 97, BUN/Creatinine Ratio 4.1 L, Glucose 77, Calcium 8.5, Total Bilirubin 0.80, Direct Bilirubin 0.23, AST 22, ALT 20, Alkaline Phosphatase 41 L, Total Protein 5.8 L, Albumin 3.3, Globulin 2.5 12/26/23 08:06: Urine Test Negative Radiography Diagnostic Testing: Radiology Impression Cholangiogram 12/26/23 16:00 IMPRESSION: Fluoroscopic assistance for intraoperative cholangiogram. Please see operative report for additional information. Electronically Signed: Robe Oneill MD at 5:05 EDT , D/C Instructions Discharge Diet: Light diet - advance as tolerated (if you have questions about your diet instructions, please talk to you doctor.) May shower in (days): 1 Call your doctor if your incision/area has: Continuous Slow Oozing, Sudden Increased Bleeding, Increased Pain/ Swelling, Increased Redness and Foul Smelling Discharge Call your doctor if you observe: Fever of 101 or Higher Suture Line Care: Avoid Pulling/Pushing and Avoid Pinching/Bending Additional Dressing/Incision Instructions: Change or remove dressing in 4 days. Leave steri-strips in place for 1 week. Please Follow Up With: Navid Pepe MD When: Call [phone] to make an appointment to be seen in about 10 days. Meaningful Use Info Meaningful Use Meaningful Use Diagnoses (Choose all that apply): None applicable Ischemic Stroke Statin Dosing Therapy Reference: STATIN DOSE THERAPY REFERENCE: * Patients > 75 years receive moderate or high dose statin therapy. * Patients 75 years or YOUNGER should receive HIGH intensity statin dose unless contraindicated. You will be required to document reason for non-treatment if statin daily dose does not meet guidelines. HIGH DOSE STATIN THERAPY DAILY Atorvastatin > than or = to 40 mg Rosuvastatin > than or = to 20 mg Amlodipine + Atorvastatin > than or = to 2.5/40 mg Ezetimibe + Simvastatin 10/80 mg Simvastatin 80mg Discharge Plan Admission Admit Date/Time: 12/23/23 19:17 Primary Reason for Your Visit: Acalculous cholecystitis Attending Provider: Guadalupe Orr Primary Care Provider: Davon Almanza Consulting Providers: Marshall Sanchez; Michael Dove; Navid Pepe Discharge Orders/Prescriptions Prescriptions: New oxycodone-acetaminophen [Percocet] 5-325 mg tablet 1 tab PO Q6H PRN (Reason: pain) 3 Days Qty: 10 0RF Continued multivitamin Tablet 1 tab PO DAILY Referrals / Follow Up: Davon Almanza, PA [Primary Care Provider] - Disposition Disposition (needs filled in before D/C Order can be placed): Home, Self Care
[2023-12-27 07:50] LABS: Absolute Neutrophil Count 7.6 X10^3/uL (2.0-7.7); Basophil# 0.02 X10^3/uL; Basophil% 0.2 % (0-1); Hematocrit 33.6 % (37-47); Hemoglobin 11.8 g/dL (12.0-15.0); Lymphocyte % 12.5 % (19-41); Mean Corp Hgb Conc 35.1 g/dL (32-36); Mean Corpuscular Hgb 31.3 pg (27.0-32.0); Mean Corpuscular Volume 89.1 fL (81-99); Mean Platelet Vol. 9.2 fl (6.2-12.0); Monocyte# 0.71 X10^3/uL; Monocyte% 7.4 % (0-10); NRBC Flagged by Analyzer 0 % (0-5); Neutrophil # 7.62 X10^3/uL (2.7-7.7); Neutrophil % 79.6 % (47-70); Platelet Count 243 K/mm3 (150-450); RBC Distribution Width CV 11.2 % (11.6-14.6); RBC Distribution Width SD 36.2 fl (35.1-43.9); Red Blood Count 3.77 M/mm3 (4.2-5.4); White Blood Count 9.6 K/mm3 (4.4-11.0)
[2023-12-27 08:33] LABS: ALB/GLOB Ratio 1.3 RATIO (0.9-2.4); AST(SGOT) 37 U/L (15-37); Alanine Aminotransfer ALT/SGPT 31 U/L (13-56); Albumin, Serum 3.4 g/dL (3.2-5.0); Alkaline Phosphatase 40 U/L (45-117); Anion Gap 9 (5-15); BUN 4 mg/dL (7-18); BUN/Creat Ratio 6.3 RATIO (10-20); Calcium,Total 8.8 mg/dL (8.5-10.1); Chloride 106 mmol/L (98-107); Creatinine, Serum 0.63 mg/dL (0.55-1.02); EST Glomerular Filtration Rate 115 mL/min (>60); Est Glom Filt Rate - Afr Amer 140 mL/min (>60); Estimated Creatinine Clearance 132.74 ml/min; Globulin 2.6 g/dL (2.2-4.2); Glucose 102 mg/dL (74-106); Potassium 4.2 mmol/L (3.5-5.1); Sodium Level 139 mmol/L (136-145)
[2023-12-27 08:43] VITALS: BP 148/80; PULSE 69; RESP 18; TEMP 36.6; O2SAT 100
[2023-12-27 08:46] VITALS: BP 148/80; PULSE 71; RESP 18; TEMP 36.6; O2SAT 100
[2023-12-27] MEDS: Pantoprazole Sodium 40 MG in 0.9% Normal Saline (100mL MB+) 100 ML 330 MG IV (08:49)
[2023-12-27] MEDS: Ondansetron 4 MG/2 ML Vial IV (08:54)
--- NOTE | 2023-12-27 12:55 | PN_ITS ---
Subjective Subjective Patient seen and examined. She is postop day 1 of laparoscopic cholecystectomy. She says the pain has improved but is still present. She was able to tolerate breakfast this morning. Review of systems otherwise negative. Objective Data Objective Data Vital Signs: Vital Signs Temp Pulse Resp BP Pulse Ox O2 Del Method O2 Flow Rate 97.9 F 71 18 148/80 H 100 Room Air 2 12/27/23 08:46 12/27/23 08:46 12/27/23 08:46 12/27/23 08:46 12/27/23 08:46 12/27/23 08:46 12/26/23 19:15 Oxygen Flow Rate (L/min) 2 Oxygen Delivery Method Room Air Weight: 157 lb 3.033 oz Body Mass Index (BMI) 23.3 Intake & Output: Intake and Output for Last 24 Hours 12/25/23 12/26/23 12/27/23 23:59 23:59 23:59 Intake Total 3037.5 / 3917.5 3987.5 / 4187.5 3020.25 / 3020.25 Balance 3037.5 / 3917.5 3987.5 / 4187.5 3020.25 / 3020.25 Lab / Micro Data 12/27/23 07:40 12/27/23 07:40 Labs: Laboratory Results - last 24 hr 12/27/23 07:40: WBC 9.6, RBC 3.77 L, Hgb 11.8 L, Hct 33.6 L, MCV 89.1, MCH 31.3, MCHC 35.1, RDW Std Deviation 36.2, RDW Coeff of Donn 11.2 L, Plt Count 243, MPV 9.2, Immature Gran % (Auto) 0.300, Neut % (Auto) 79.6 H, Lymph % (Auto) 12.5 L, [place] % (Auto) 7.4, Eos % (Auto) 0.0, Baso % (Auto) 0.2, Absolute Neuts (auto) 7.6, Absolute Lymphs (auto) 1.20, Nucleated RBC % 0, Sodium 139, Potassium 4.2, Chloride 106, Carbon Dioxide 24.0, Anion Gap 9, BUN 4 L, Creatinine 0.63, Estim Creat Clear Calc 132.74, Est GFR (MDRD) Af Amer 140, Est GFR (MDRD) Non-Af 115, BUN/Creatinine Ratio 6.3 L, Glucose 102, Calcium 8.8, Total Bilirubin 0.70, AST 37, ALT 31, Alkaline Phosphatase 40 L, Total Protein 6.0 L, Albumin 3.4, Globulin 2.6, Albumin/Globulin Ratio 1.3 Radiography Diagnostic Testing: Radiology Impression Cholangiogram 12/26/23 16:00 IMPRESSION: Fluoroscopic assistance for intraoperative cholangiogram. Please see operative report for additional information. Electronically Signed: Robe Oneill MD at 5:05 EDT , Physical Exam Const alert, oriented x3, no apparent distress, average body habitus, healthy appearing and well nourished General Appearance: cooperative and well developed HEENT normocephalic, head/scalp atraumatic, hearing grossly normal bilaterally, moist oral mucous membranes and oropharynx normal Eyes PERRL and EOMs intact bilaterally Neck no lymphadenopathy and supple Lymph Lymphatic: no lymphadenopathy noted and no lymphedema noted Resp normal respiratory effort, normal air movement, no retractions, no use of accessory muscles and clear to auscultation bilaterally Cardio regular rate, regular rhythm, S1 normal heart sound, S2 normal heart sound and no murmurs GI soft to palpation GI Narrative: intact dressing over laparoscopic sites. Mild generalised tenderness, no guarding or rebound tenderness Extremity normal to inspection, full ROM, normal capillary refill, no clubbing, cyanosis or edema and no calf tenderness General Extremity: no tenderness to palpation of joints or extremities Skin General Skin Exam: no breakdown Neuro oriented x3, CN's II-XII intact bilaterally, moves all extremities, no focal motor deficits, no sensory deficits noted and deep tendon reflexes 2+ bilaterally Sensorium / Orientation: awake, alert, oriented to person, oriented to place and oriented to time Speech: speech normal Motor Exam: strength 5/5 throughout and general weakness Psych thought process normal, cooperative and affect normal Appearance: appropriate Assessment & Plan Assessment/Plan (1) Intractable nausea and vomiting: (2) Duodenal mass: (3) Celiac disease: (4) Ileocolitis: (5) Hyperbilirubinemia: PLAN: Plan #Intractable abdominal pain * CT abdomen and pelvis done at outside hospital showed well circumscribed heterogenous enhancing lesion ~ 2.3cm x 2cm within the pylorus/proximal duodenum; she also had multifocal small bowl and colonic wall thickening with surrounding inflammation and suspected ileocolitis. * She was in [facility], about 2 months ago. She said she only drank bottled water whilst there and did not have any GI complaints. * She also does have a history of celiac disease. She has mild hepatomegaly on palpation, though CT abdomen did not make any mention of enlarged liver * had EGD which showed mild duodenitis but did not show any mass * Repeat CT abdomen/pelvis done showed colitis of the ascending and transverse colon as well as small dependent, layering gallstones * gallbladder USG showed fatty infiltration of the liver with positive Abbasi sign and no gallstones seen. HIDA scan showed evidence of gallbladder and all sphincter of Oddi dyskinesia * IV zofran and IM phenergan for break through vomiting * hydrate with IVF NS * IV morphine prn for pain. * had laparoscopic cholecystecomy yesterday. Gallbladder was found to be in inflammed intraop. * started on a diet. * * #Elevated liver enzymes * liver enzymes have normalised * repeat CT showed hepatic steatosis. * will monitor. * #Hypokalemia: K is .3. Will replace and trend. #History of celiac disease * States she was diagnosed with celiac disease when she was and ate a bagel. She has not had any flareups since then. * She is not sure if she has had formal diagnosis for celiac disease. * Will benefit from follow-up with gastroenterology on outpatient basis. * #History of hyperemesis gravidarum: urine test was negative. has IUD in place DVT prophylaxis; SCDs Charges/Coding Visit Charges Inpatient E&M: 47622 Subs Hosp L2
[2023-12-27 13:08] LABS: Anti-Centromere B Ab <0.2 AI (0.0-0.9); Anti-Chromatin <0.2 AI (0.0-0.9); Anti-Jo <0.2 AI (0.0-0.9); Anti-Scleroderma-70 AB <0.2 AI (0.0-0.9); Anti-dsDNA Ab 1 IU/mL (0-9); RNP Ab <0.2 AI (0.0-0.9); SJOGREN'S Anti-SS-A test < 0.2 AI (0.0-0.9); SJOGREN'S Anti-SS-B test < 0.2 AI (0.0-0.9); Smith Ab <0.2 AI (0.0-0.9)
[2023-12-27 14:33] VITALS: BP 139/82; PULSE 68; PULSE 70; RESP 18; TEMP 36.7; O2SAT 100
--- NOTE | 2023-12-27 14:55 | DCINST_ITS ---
Discharge Instructions Diet Discharge Diet: Light diet - advance as tolerated (if you have questions about your diet instructions, please talk to you doctor.) Activity Discharge Activity: Return to Normal Activity May shower in (days): 1 Dressing / Incision Call your doctor if your incision/area has: Continuous Slow Oozing, Sudden Increased Bleeding, Increased Pain/ Swelling, Increased Redness and Foul Smelling Discharge Call your doctor if you observe: Fever of 101 or Higher Suture Line Care: Avoid Pulling/Pushing and Avoid Pinching/Bending Additional Dressing/Incision Instructions:: Change or remove dressing in 4 days. Leave steri-strips in place for 1 week. Follow Up Care Please Follow Up With: Navid Pepe MD Test Results: Test results from this visit will be discussed in further detail at your follow- up appointment, if applicable. Discharge Plan Admission Admit Date/Time: 12/23/23 19:17 Primary Reason for Your Visit: Acalculous cholecystitis Attending Provider: Guadalupe Orr Primary Care Provider: Davon Almanza Consulting Providers: Marshall Sanchez; Michael Alexander; Navid Pepe Instructions Patient Instructions: ED Cholecystitis, Presumed Discharge Orders/Prescriptions Prescriptions: New oxycodone-acetaminophen [Percocet] 5-325 mg tablet 1 tab PO Q6H PRN (Reason: pain) 3 Days Qty: 10 0RF Continued multivitamin Tablet 1 tab PO DAILY Referrals / Follow Up: Navid Pepe MD [Med Staff - Active Staff] - Within 1 Week Davon Almanza PA [Primary Care Provider] - Within 1 Week Disposition Disposition (needs filled in before D/C Order can be placed): Home, Self Care
--- NOTE | 2023-12-27 14:55 | DS.PCM_ITS ---
Providers Date of Admission: 12/23/23 Date of Discharge: 12/27/23 Primary Care Physician: PATI Cedillo Consultations 12/23/23 19:17 Consult: Gastroenterology Routine Consulting Provider: Michael Alexander Reason for Consult: Abdominal pain with history of celiac disease. EMERGENT Consult: No Notified: Yes Date Notified: 12/23/23 Time Notified: 19:19 Method of Notification: Text 12/25/23 09:36 Consult: General Surgery Routine Consulting Provider: Navid Pepe Reason for Consult: intractable abdominal pain EMERGENT Consult: No Notified: Yes Date Notified: 12/25/23 Time Notified: 09:36 Method of Notification: Informed by Dr Barker Reason For Visit: ABDOMINAL PAIN Diagnosis Discharge Diagnosis (1) Intractable nausea and vomiting: Status: Acute Code(s): R11.2 - Nausea with vomiting, unspecified (2) Duodenal mass: Status: Acute Code(s): K31.89 - Other diseases of stomach and duodenum (3) Celiac disease: Status: Acute Code(s): K90.0 - Celiac disease (4) Ileocolitis: Status: Acute Code(s): K52.9 - Noninfective gastroenteritis and colitis, unspecified (5) Hyperbilirubinemia: Status: Acute Code(s): E80.6 - Other disorders of bilirubin metabolism Plan #Intractable abdominal pain * CT abdomen and pelvis done at outside hospital showed well circumscribed heterogenous enhancing lesion ~ 2.3cm x 2cm within the pylorus/proximal duodenum; she also had multifocal small bowl and colonic wall thickening with surrounding inflammation and suspected ileocolitis. * She was in [facility], about 2 months ago. She said she only drank bottled water whilst there and did not have any GI complaints. * She also does have a history of celiac disease. She has mild hepatomegaly on palpation, though CT abdomen did not make any mention of enlarged liver * had EGD which showed mild duodenitis but did not show any mass * Repeat CT abdomen/pelvis done showed colitis of the ascending and transverse colon as well as small dependent, layering gallstones * gallbladder USG showed fatty infiltration of the liver with positive Abbasi sign and no gallstones seen. HIDA scan showed evidence of gallbladder and all sphincter of Oddi dyskinesia * IV zofran and IM phenergan for break through vomiting * hydrate with IVF NS * IV morphine prn for pain. * had laparoscopic cholecystecomy yesterday. Gallbladder was found to be in inflammed intraop. * started on a diet. * * #Elevated liver enzymes * liver enzymes have normalised * repeat CT showed hepatic steatosis. * will monitor. * #Hypokalemia: K is .3. Will replace and trend. #History of celiac disease * States she was diagnosed with celiac disease when she was and ate a bagel. She has not had any flareups since then. * She is not sure if she has had formal diagnosis for celiac disease. * Will benefit from follow-up with gastroenterology on outpatient basis. * #History of hyperemesis gravidarum: urine test was negative. has IUD in place DVT prophylaxis; SCDs Medications at Discharge Home Medications multivitamin 1 tab PO DAILY 12/23/23 oxycodone-acetaminophen 5 mg-325 mg tablet (Percocet) 1 tab PO Q6H PRN pain 3 days #10 tabs 12/27/23 Hospital Course Operations cholecystecomy Procedures None Summary of Care Provided Minutes Spent on Discharge: 45 Hospital Course: Patient is a 33-year-old female with a past medical history as outlined was admitted as a transfer from an outside hospital on 12/23/2023 with a complaint of abdominal pain, nausea and vomiting. She had presented at an outside hospital with the above-mentioned complaints. Abdominal pain was mainly in the epigastrium with associated nausea and several episodes of bilious emesis. She took some Zofran at home but it did not work so she went into the ED. She denied any diarrhea or dysuria but admitted to a low-grade fever and headache. Urinalysis was questionable for UTI. Bilirubin was mildly elevated at 1.6 but AST and ALT were not significantly elevated. Urine test was negative. She was hydrated with fluids and given IV Dilaudid and antiemetics but his symptoms persisted. She did admit to a travel history [facility] 2023 [facility] but denied any severe illness during that trip. CT of the abdomen and pelvis done at outside hospital showed a well-circumscribed heterogeneous enhancing lesion about 2.3 x 2 cm within the pylorus and proximal duodenum with associated diffuse small bowel and colonic wall thickening and subtle surrounding inflammation and suspected ileocolitis. She was transferred to [facility] for evaluation by gastroenterology. She was admitted and managed for intractable nausea and vomiting with concern for duodenal mass. She had EGD which showed normal esophagus with normal stomach and erythematous duodenopathy. Repeat CT abdomen done of the abdomen and pelvis showed colitis of the ascending and transverse colon as well as small dependent layering gallstones. General surgery was consulted and she had a gallbladder ultrasound which showed fatty infiltration of the liver with positive Abbasi sign and no gallstones seen. HIDA scan was subsequently ordered which showed evidence of gallbladder and sphincter of Oddi dyskinesia. She therefore had laparoscopic cholecystectomy on 12/26/2023 findings of which were biliary dyskinesia with chronic acalculous cholecystitis. She was able to tolerate a diet subsequently and pain also improved. She also was discharged home on 12/27/2023. She is to follow-up with her primary care doctor and with general surgery within 1 to 2 weeks. She was given a prescription for Percocet 5 325 mg 1 tablet every 6 hours as needed for total of 10 tablets by general surgery. Patient seen and examined prior to discharge. She felt much better. was by her bedside. She was able to tolerate breakfast and so later in the day she decided to go home. Labs and vitals reviewed. Home medication reviewed and reconciled. Physical Exam Const alert, oriented x3, no apparent distress, average body habitus, healthy appearing and well nourished Constitutional Narrative: i General Appearance: cooperative, comfortable and well developed HEENT normocephalic, head/scalp atraumatic, hearing grossly normal bilaterally, moist oral mucous membranes and oropharynx normal Mouth: oral and palatal mucosa normal Eyes PERRL and EOMs intact bilaterally Neck no lymphadenopathy and supple Lymph Lymphatic: no lymphadenopathy noted and no lymphedema noted Resp normal respiratory effort, normal air movement, no retractions, no use of accessory muscles and clear to auscultation bilaterally Cardio regular rate, regular rhythm, S1 normal heart sound, S2 normal heart sound and no murmurs GI soft to palpation GI Narrative: intact dressing over laparoscopic sites. Minimal generalized tenderness, no guarding or rebound tenderness Extremity normal to inspection, full ROM, normal capillary refill, no clubbing, cyanosis or edema and no calf tenderness General Extremity: no tenderness to palpation of joints or extremities Skin no rashes or lesions noted General Skin Exam: no breakdown Neuro oriented x3, CN's II-XII intact bilaterally, moves all extremities, no focal motor deficits, no sensory deficits noted and deep tendon reflexes 2+ bilaterally Sensorium / Orientation: awake, alert, oriented to person, oriented to place and oriented to time Speech: speech normal Motor Exam: strength 5/5 throughout and general weakness Psych thought process normal, cooperative and affect normal Appearance: appropriate Weight / BMI Weight Weight: 157 lb 3.033 oz Body Mass Index (BMI) 23.3 ABG / Lab / Microbiology Data 12/27/23 07:40 12/27/23 07:40 Laboratory: Laboratory Results - last 24 hr 12/25/23 07:56: LYDIA-1 Antibody <0.2, SS-A/Ro IgG Antibody < 0.2, SS-B/La IgG Antibody < 0.2, Sm (Gilman) Antibody <0.2, DATABASE SOFTWARE TECHNICIAN Antibody <0.2, Scl-70 Scleroderma Ab <0.2, Double Strand DNA Ab 1, Centromere B Antibody <0.2 12/27/23 07:40: WBC 9.6, RBC 3.77 L, Hgb 11.8 L, Hct 33.6 L, MCV 89.1, MCH 31.3, MCHC 35.1, RDW Std Deviation 36.2, RDW Coeff of Donn 11.2 L, Plt Count 243, MPV 9.2, Immature Gran % (Auto) 0.300, Neut % (Auto) 79.6 H, Lymph % (Auto) 12.5 L, [place] % (Auto) 7.4, Eos % (Auto) 0.0, Baso % (Auto) 0.2, Absolute Neuts (auto) 7.6, Absolute Lymphs (auto) 1.20, Nucleated RBC % 0, Sodium 139, Potassium 4.2, Chloride 106, Carbon Dioxide 24.0, Anion Gap 9, BUN 4 L, Creatinine 0.63, Estim Creat Clear Calc 132.74, Est GFR (MDRD) Af Amer 140, Est GFR (MDRD) Non-Af 115, BUN/Creatinine Ratio 6.3 L, Glucose 102, Calcium 8.8, Total Bilirubin 0.70, AST 37, ALT 31, Alkaline Phosphatase 40 L, Total Protein 6.0 L, Albumin 3.4, Globulin 2.6, Albumin/Globulin Ratio 1.3 Radiography Diagnostic Testing: Radiology Impression Cholangiogram 12/26/23 16:00 IMPRESSION: Fluoroscopic assistance for intraoperative cholangiogram. Please see operative report for additional information. Electronically Signed: Robe Oneill MD at 5:05 EDT , D/C Instructions Discharge Diet: Light diet - advance as tolerated (if you have questions about your diet instructions, please talk to you doctor.) Discharge Activity: Return to Normal Activity May shower in (days): 1 Weight Bearing Status: Weight bearing as tolerated Call your doctor if your incision/area has: Continuous Slow Oozing, Sudden Increased Bleeding, Increased Pain/ Swelling, Increased Redness and Foul Smelling Discharge Call your doctor if you observe: Fever of 101 or Higher Suture Line Care: Avoid Pulling/Pushing and Avoid Pinching/Bending Additional Dressing/Incision Instructions: Change or remove dressing in 4 days. Leave steri-strips in place for 1 week. Please Follow Up With: Navid Pepe MD When: Call [phone] to make an appointment to be seen in about 10 days. Meaningful Use Info Meaningful Use Meaningful Use Diagnoses (Choose all that apply): None applicable Ischemic Stroke Statin Dosing Therapy Reference: STATIN DOSE THERAPY REFERENCE: * Patients > 75 years receive moderate or high dose statin therapy. * Patients 75 years or YOUNGER should receive HIGH intensity statin dose unless contraindicated. You will be required to document reason for non-treatment if statin daily dose does not meet guidelines. HIGH DOSE STATIN THERAPY DAILY Atorvastatin > than or = to 40 mg Rosuvastatin > than or = to 20 mg Amlodipine + Atorvastatin > than or = to 2.5/40 mg Ezetimibe + Simvastatin 10/80 mg Simvastatin 80mg Discharge Plan Admission Admit Date/Time: 12/23/23 19:17 Primary Reason for Your Visit: Acalculous cholecystitis Attending Provider: Guadalupe Orr Primary Care Provider: Davon Almanza Consulting Providers: Marshall Sanchez; Michael Alexander; Navid Pepe Instructions Patient Instructions: ED Cholecystitis, Presumed Discharge Orders/Prescriptions Prescriptions: New oxycodone-acetaminophen [Percocet] 5-325 mg tablet 1 tab PO Q6H PRN (Reason: pain) 3 Days Qty: 10 0RF Continued multivitamin Tablet 1 tab PO DAILY Referrals / Follow Up: Navid Pepe MD [Med Staff - Active Staff] - Within 1 Week Davon Almanza PA [Primary Care Provider] - Within 1 Week Disposition Disposition (needs filled in before D/C Order can be placed): Home, Self Care Charges/Coding Visit Charges Inpatient E&M: 83853 Disch Hosp >30min
[2023-12-30 04:06] LABS: Beef <0.10 kU/L (Class 0); Chocolate <0.10 kU/L (Class 0); Codfish <0.10 kU/L (Class 0); Corn <0.10 kU/L (Class 0); Egg, Whole <0.10 kU/L (Class 0); Milk (Cow) <0.10 kU/L (Class 0); Mussels <0.10 kU/L (Class 0); Peanut <0.10 kU/L (Class 0); Pork <0.10 kU/L (Class 0); Salmon <0.10 kU/L (Class 0); Shrimp <0.10 kU/L (Class 0); Soybean <0.10 kU/L (Class 0); Tuna <0.10 kU/L (Class 0); Wheat <0.10 kU/L (Class 0)
[2024-01-01 13:08] LABS: ACCA 8 units (0-90); ALCA 5 units (0-60); AMCA 18 units (0-100); Cytoplasmic Ab (C-ANCA) <1:20 titer (Neg:<1:20); Deamidated Gliadin IgA 4 units (0-19); Deamidated Gliadin IgG 2 units (0-19); Endomysial Antibody IgA Negative (Negative); IgG, Quant 625 mg/dL (586-1602); Immunoglobulin A 97 mg/dL (87-352); Immunoglobulin E 20 IU/mL (6-495); Immunoglobulin G, Subclass 1 247 mg/dL (248-810); Immunoglobulin G, Subclass 2 227 mg/dL (130-555); Immunoglobulin G, Subclass 3 40 mg/dL (15-102); Immunoglobulin G, Subclass 4 13 mg/dL (2-96); Immunoglobulin M 76 mg/dL (26-217); Perinuclear Ab (P-ANCA) <1:20 titer (Neg:<1:20); gASCA 46 units (0-50); t-Transglutaminase IgA <2 U/mL (0-3)
== END 2023-12-27 15:08 | disposition home or self-care (01) | DRG 419 ==
PROVIDERS: Anesthesiology; Internal Medicine; Internal Medicine Gastroenterology; Surgery; Admitting Provider Internal Medicine; PCP Physician Assistant; Visit Provider Student in an Organized Health Care Education/Training Program
PROC: 0DJ08ZZ Inspection of Upper Intestinal Tract, Via Natural or Artificial Opening Endoscopic (ICD-10-PCS; CPT 43235; principal; 2023-12-24 13:25)
PROC: 0FT44ZZ Resection of Gallbladder, Percutaneous Endoscopic Approach (ICD-10-PCS; CPT 47610; principal; 2023-12-26 15:20)
DX: K81.1 Chronic cholecystitis (principal); E87.6 Hypokalemia; K76.0 Fatty (change of) liver, not elsewhere classified; K29.80 Duodenitis without bleeding; G44.209 Tension-type headache, unspecified, not intractable; K90.0 Celiac disease; Z97.5 Presence of (intrauterine) contraceptive device
CPT/HCPCS: 36415; 74174; 74300; 76000; 76705; 78227; 80048; 80053; 80076; 81001; 81025; 82150; 82784; 82785; 82787; 83516; 83690; 83735; 84100; 84443; 84703; 85025; 85610; 85652; 85730; 86003; 86005; 86036; 86140; 86225; 86235; 86255; 86256; 86671; 88304; 88305; 93005; 94668; 97802; A9537; J7030; J7120; Q9967; A4216; J2405; J2805